=== PATIENT | female | born 1960 | race Caucasian/White ===

== ENCOUNTER 2019-04-23 07:06 | Inpatient (IN) | payer MEDICAID ==
[~2019-04-23 07:06] MED LIST: Bupivacaine 0.5% 50 ML MDV ONE; Lidocaine 1% with EPINEPHrine 1:100,000 50 ML MDV ONE; Meropenem 500 MG SDV ONE
[2019-04-23] MEDS ORDERED: Metoprolol Succinate 50 MG Tab.ER PO ONE (07:17)
[2019-04-23] MEDS ORDERED: Succinylcholine 200 MG/10 ML MDV ONE (07:23)
[2019-04-23] MEDS ORDERED: fentaNYL 250 MCG/5 ML SDV ONE ×2 (07:23→09:26)
[2019-04-23] MEDS ORDERED: Glycopyrrolate 0.2 MG/ML 5 ML MDV ONE (07:23)
[2019-04-23] MEDS ORDERED: Propofol 200 MG/20 ML SDV ONE (07:23)
[2019-04-23] MEDS ORDERED: Dexamethasone 4 MG/ML SDV ONE (07:23)
[2019-04-23] MEDS ORDERED: Neostigmine Methylsulfate 1 MG/ML 5 ML Syringe ONE (07:23)
[2019-04-23] MEDS ORDERED: Rocuronium 50 MG/5 ML Vial ONE (07:23)
[2019-04-23] MEDS ORDERED: Ondansetron 4 MG/2 ML SDV ONE (07:23)
[2019-04-23] MEDS ORDERED: Acetaminophen 500 MG Tab PO ONE (07:30)
[2019-04-23] MEDS ORDERED: Dextrose 5%-Lactated Ringers 1,000 ML IV SCH (07:45)
[2019-04-23] MEDS ORDERED: Scopolamine 1.5 MG Transdermal Patch TOP SCH (07:45)
[2019-04-23] MEDS ORDERED: cefOXitin 2 GM in Sodium Chloride 0.9% 50 ML IV ONE (08:45)
[2019-04-23] MEDS ORDERED: Ketamine 50 MG in Sodium Chloride 0.9% 49.5 ML IV SCH (09:45)
[2019-04-23] MEDS ORDERED: Ketamine 500 MG/5 ML MDV IV SCH (09:45)
[2019-04-23] MEDS ORDERED: Lidocaine 2% 100 MG/5 ML Syringe IVPUSH SCH (09:45)
[2019-04-23] MEDS ORDERED: fentaNYL 100 MCG/2 ML SDV IVPUSH ONE (10:19)
[2019-04-23] MEDS ORDERED: hydrOXYzine HCl 100 MG/2 ML SDV IM ONE (10:19)
[2019-04-23] MEDS: Lidocaine 0.4%/D5W 2 GM/500 ML BAG IV SCH (11:31)
[2019-04-23] MEDS ORDERED: Acetaminophen Soln 650 MG/20.3 ML UD Cup PO SCH (11:51)
[2019-04-23] MEDS ORDERED: Labetalol 20 MG/4 ML Syringe IVPUSH PRN (11:51)
[2019-04-23] MEDS ORDERED: diphenhydrAMINE 50 MG/ML SDV IVPUSH PRN (11:51)
[2019-04-23] MEDS ORDERED: HYDROmorphone 0.5 MG/0.5 ML Syringe IVPUSH PRN (11:51)
[2019-04-23] MEDS ORDERED: Metoclopramide 10 MG/2 ML SDV IVPUSH PRN (11:51)
[2019-04-23] MEDS ORDERED: hydrOXYzine HCl 100 MG/2 ML SDV IM PRN (11:51)
[2019-04-23] MEDS ORDERED: fentaNYL 100 MCG/2 ML SDV ONE (13:02)
[2019-04-23] MEDS: Levothyroxine 100 MCG Tab PO SCH (13:27)
[2019-04-23] MEDS: Docusate Sodium 100 MG Cap PO SCH ×2 (13:27→20:44)
[2019-04-23] MEDS: amLODIPine 5 MG Tab PO SCH (13:28)
[2019-04-23] MEDS: HYDROmorphone 1 MG/ML Syringe IV PRN ×4 (13:35→22:13)
[2019-04-23] MEDS ORDERED: Pantoprazole 40 MG Vial IVPUSH SCH (14:00)
[2019-04-23] MEDS: Dextrose 5%-Lactated Ringers 1,000 ML IV SCH ×3 (15:18→22:08)
[2019-04-23] MEDS: Acetaminophen 325 MG Tab PO SCH ×2 (15:45→20:43)
[2019-04-23] MEDS: Heparin Sodium 5,000 Units/ML Vial SUBCUT SCH (15:46)
[2019-04-23] MEDS: cefOXitin 2 GM in Sodium Chloride 0.9% 50 ML IV SCH ×2 (15:50→22:14)
[2019-04-23] MEDS ORDERED: MVI, Adult with Vitamin K 10 ML, Thiamine 200 MG, Chromium/Copper/Mang/Selen/Zn 1 ML in... IV SCH ×4 (16:00)
[2019-04-24] MEDS: HYDROmorphone 1 MG/ML Syringe IV PRN ×2 (00:22→02:23)
[2019-04-24] MEDS: Acetaminophen 325 MG Tab PO SCH ×4 (02:04→19:28)
[2019-04-24] MEDS: Ondansetron 4 MG/2 ML SDV IVPUSH PRN ×2 (02:27→19:41)
[2019-04-24] MEDS: Heparin Sodium 5,000 Units/ML Vial SUBCUT SCH ×2 (04:14→15:44)
[2019-04-24] MEDS: cefOXitin 2 GM in Sodium Chloride 0.9% 50 ML IV SCH (04:14)
[2019-04-24] MEDS: Dextrose 5%-Lactated Ringers 1,000 ML IV SCH (04:22)
[2019-04-24] MEDS ORDERED: Iopamidol 612 MG/ML 50 ML SDV PO STA (04:24)
--- NOTE | 2019-04-24 05:55 | CRLCR ---
HISTORY: Revision of Alexi-en-Y gastric bypass. TECHNIQUE: Patient was given oral contrast to drink. Two spot films obtained. COMPARISON: No prior. FINDINGS: Contrast is present within the proximal jejunum. There may be a small gastric pouch. There is no contrast extravasation to suggest leak. No obstruction. IMPRESSION: No obstruction or leak seen on these 2 views. Dictated by Wally Doll MD @ Apr 27 2019 1:45PM Signed by Dr. Wally Doll @ Apr 27 2019 1:45PM
[2019-04-24] MEDS ORDERED: Dextrose 5%-Lactated Ringers 1,000 ML IV SCH (07:30)
[2019-04-24] MEDS: Levothyroxine 100 MCG Tab PO SCH (07:45)
[2019-04-24] MEDS: HYDROmorphone 2 MG Tab PO PRN ×2 (07:47→12:11)
[2019-04-24] MEDS ORDERED: Ondansetron 4 MG/2 ML SDV ONE (08:22)
[2019-04-24] MEDS ORDERED: Neostigmine Methylsulfate 1 MG/ML 5 ML Syringe ONE (08:22)
[2019-04-24] MEDS ORDERED: Glycopyrrolate 0.2 MG/ML 5 ML MDV ONE (08:22)
[2019-04-24] MEDS ORDERED: Rocuronium 50 MG/5 ML Vial ONE (08:22)
[2019-04-24] MEDS ORDERED: Propofol 200 MG/20 ML SDV ONE (08:22)
[2019-04-24] MEDS ORDERED: Dexamethasone 4 MG/ML SDV ONE (08:22)
[2019-04-24] MEDS ORDERED: Succinylcholine 200 MG/10 ML MDV ONE (08:22)
[2019-04-24] MEDS ORDERED: fentaNYL 250 MCG/5 ML SDV ONE ×2 (08:23→09:14)
[2019-04-24] MEDS: Docusate Sodium 100 MG Cap PO SCH ×2 (09:58→20:56)
[2019-04-24] MEDS: Metoprolol Succinate 50 MG Tab.ER PO SCH (09:59)
[2019-04-24] MEDS: SCOPOLAMINE PATCH CHECK TOP SCH (09:59)
[2019-04-24] MEDS: amLODIPine 5 MG Tab PO SCH (09:59)
[2019-04-24] MEDS: Lidocaine 0.4%/D5W 2 GM/500 ML BAG IV SCH (10:06)
[2019-04-24] MEDS: HYDROmorphone 1 MG/ML Syringe IVPUSH PRN ×3 (15:17→22:03)
[2019-04-24] MEDS ORDERED: MVI, Adult with Vitamin K 10 ML, Thiamine 200 MG, Chromium/Copper/Mang/Selen/Zn 1 ML in... IV SCH ×4 (16:00)
[2019-04-24] MEDS ORDERED: Pantoprazole 40 MG Delayed-Release Granules 1 Packet PO SCH (16:30)
--- NOTE | 2019-04-24 17:48 | PN ---
DATE OF SERVICE: 04/24/2019 SUBJECTIVE: The patient is postoperative day #1. She has been up ambulating. Vital signs stable. Pain has been controlled. She had some nausea earlier in the shift, and she was given Zofran with Reglan, and this has resolved. REVIEW OF SYSTEMS: Remainder of review of systems negative for any pertinent positives and negatives. OBJECTIVE: GENERAL: The patient is a pleasant 59-year-old female. VITAL SIGNS: TPR is 96.4, 76, 16, blood pressure 128/68. HEENT: Negative. NECK: Supple. HEART: Regular rate and rhythm. LUNGS: Clear. ABDOMEN: Dressings dry and intact. Abdominal binder is on. EXTREMITIES: Without peripheral edema. ASSESSMENT: Exploratory laparotomy with: 1. Reduction of volvulus and closure of internal hernia. 2. Small bowel resection. 3. 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 Date of surgery 04/23/2019. PLAN: 1. Step-2 gastric bypass diet without cereal. 2. Dilaudid 2 mg 1 to 2 every 4 hours p.r.n. pain. 3. Decrease IV 200 mL per hour. 4. Dressing off, may shower. 5. Good pulmonary toilet. We will evaluate p.r.n. or in a.m. FOLLOWUP APPOINTMENT: Does not wish to come back to [facility]. Amrita Delgado PA-C /[id number]
[2019-04-25] MEDS: HYDROmorphone 2 MG Tab PO PRN ×3 (00:50→11:04)
[2019-04-25] MEDS: Acetaminophen 325 MG Tab PO SCH ×2 (01:42→08:29)
[2019-04-25] MEDS: Heparin Sodium 5,000 Units/ML Vial SUBCUT SCH (03:49)
[2019-04-25] MEDS: Ondansetron 4 MG/2 ML SDV IVPUSH PRN (03:49)
[2019-04-25] MEDS: Levothyroxine 100 MCG Tab PO SCH (08:28)
[2019-04-25] MEDS: Docusate Sodium 100 MG Cap PO SCH (08:29)
[2019-04-25] MEDS: amLODIPine 5 MG Tab PO SCH (08:30)
[2019-04-25] MEDS: Metoprolol Succinate 50 MG Tab.ER PO SCH (08:30)
[2019-04-25] MEDS: SCOPOLAMINE PATCH CHECK TOP SCH (08:31)
[2019-04-25] MEDS ORDERED: Cyanocobalamin (Vitamin B12) 1,000 MCG/ML SDV IM ONE (09:00)
[2019-04-25] MEDS ORDERED: Aluminum Hydroxide/Magnesium Hydroxide/Simethicone Susp 30 ML Cup PO ONE (09:35)
--- NOTE | 2019-04-27 08:36 | DISCH ---
FINAL DIAGNOSES: 1. Partial small bowel obstruction, secondary to: a. Focal volvulus. b. 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 2. Extensive intraabdominal adhesions. OPERATIVE PROCEDURES: Exploratory laparotomy with: 1. Reduction of small bowel volvulus. 2. Closure of internal hernia. 3. Small bowel resection. 4. Placement of Interceed mesh to limit recurrent adhesion formation. SUMMARY: This is a 59-year-old, who is severaly years status post Alexi-en-Y gastric bypass, presenting with ongoing crampy abdominal pain in the postprandial period. An upper GI endoscopy was unremarkable and was felt to have a partial small bowel obstruction. This was confirmed at the time of surgery with the patient having a volvulus, along with stricture at the junction of the Alexi limb going into the jejunojejunostomy. The volvulus was reduced and internal hernia closed, and the small bowel was then resected at the junction of the Alexi limb going into the jejunojejunostomy. This was repositioned somewhat more distally, giving the patient a little bit more in the way of weight loss in the long run. Postoperatively, she has done well. She will be sent home with Dilaudid 2-4 mg p.o. q.4 hours p.r.n. pain #50, Tylenol 650 p.o. q.4 hours p.r.n. pain, and 2 doses of milk of magnesia. Otherwise, we will continue usual home medications. DIET: Step 3 diet x2 weeks postop and then advance to a regular step 4 gastric bypass diet and should be following up with Amrita Delgado at [facility] in [place] next Saturday on 04/28/2019.
--- NOTE | 2019-04-29 13:37 | OR ---
DATE OF PROCEDURE: 04/23/2019 SURGEON: Juan Zuniga MD PREOPERATIVE DIAGNOSIS: Partial small bowel obstruction. POSTOPERATIVE DIAGNOSES: 1. Partial small bowel obstruction secondary to: a. Focal volvulus. b. Stricture at the junction of Alexi limb at jejunojejunostomy. 2. Extensive intraabdominal adhesions. OPERATIVE PROCEDURES: Exploratory laparotomy with: 1. Reduction of small bowel volvulus and closure of internal hernia (11683). 2. Small bowel resection (90559). 3. Placement of Interceed mesh to limit recurrent adhesion formation between pelvic and abdominal wall and underlying viscera (95846). ANESTHESIA: General. INDICATION FOR PROCEDURE: This is a 59-year-old presenting with a fairly classic presentation of postprandial crampy abdominal pain and bloating following Alexi-en-Y gastric bypass in regard to her partial small bowel obstruction. Plan is to proceed with a limited laparotomy, reduction of any volvulus that might be identified, and lysis of adhesions along with small bowel resection as indicated. Potential risks including bleeding, infection, injury to underlying viscera, possible recurrence of the problem over time, leakage from any GI tract closures, as well as remote possibility of cardiopulmonary, septic, or hemorrhagic complications leading to were discussed, and the patient wishes to proceed. DETAILS OF PROCEDURE: The patient was taken to the operating room and placed in a supine position. After general endotracheal anesthesia was induced, a Mata catheter was inserted and the abdomen prepped and draped. A midline incision from the umbilicus roughly a handsbreadth upward towards the xiphoid was made. This was carried down through the skin, subcutaneous tissue, and full thickness of the abdominal wall. Upon entering the peritoneal cavity, a fair bit of adhesions were noted between the omentum and the anterior abdominal wall, as well as some loops of the small bowel. These were taken down. At this point, the patient was noted to have a focal volvulus of small bowel underneath the Alexi limb. This was reduced, and upon reduction of this area, the patient was noted to have a fixed stricture where the Alexi limb entered the jejunojejunostomy. Given this, this area was divided and small segment of small bowel resected, and subsequent anastomosis was then constructed a few centimeters distal to the original jejunojejunostomy with an internal firing of the Endo-DAVID 60 mm stapler. Common opening was then closed transversely with the same stapler and the angles of anastomosis were reinforced with some 3-0 Vicryl stitch. The mesenteric defect at both this site and the volvulus site was then closed with 2-0 silk stitch. At this point, no further problems were noted. The abdomen was irrigated with antibiotic-containing saline solution. Two Interceed meshes were then placed behind the pelvic wall anteriorly and laterally and then up against the anterior abdominal wall to limit recurrent adhesion formation. The midline fascia was approximated with #2 Vicryl stitch, and the skin and subcutaneous tissue were approximated with Vicryl stitch followed by dhara. The patient had received bilateral transversus abdominis plane blocks, and the incision was also anesthetized with 0.5% Marcaine and the dressing applied. The patient was taken to the recovery room in satisfactory condition. Physician occupational therapist's assistant, Amrita Delgado, played an essential role in assisting in this case, helping to position the patient, retracting structures as needed, as well as suturing and cutting sutures when indicated. Her presence improved patient safety and decreased the operative time. Juan Zuniga MD /[id number]
== END 2019-04-25 12:06 | disposition home or self-care (01) | DRG 331 ==
LOC: JP.SDS 07:06 → JP.ICU 10:05 → UNDOFXSDCACCOM 10:05 → JP.ICU 10:05 → UNDOFXSDCRRACCOM 10:05 → JP.SDS 10:06
PROVIDERS: ADMIT Surgery; ATTEND Surgery
PROC: 0DS80ZZ Reposition Small Intestine, Open Approach (ICD-10-PCS; principal; 2019-04-23)
PROC: 0DB80ZZ Excision of Small Intestine, Open Approach (ICD-10-PCS; 2019-04-23)
PROC: 3E0M05Z Introduction of Adhesion Barrier into Peritoneal Cavity, Open Approach (ICD-10-PCS; 2019-04-23)
PROC: 0DNW0ZZ Release Peritoneum, Open Approach (ICD-10-PCS; 2019-04-23)
DX: K56.2 Volvulus (principal); K56.51 Intestinal adhesions [bands], with partial obstruction; G47.31 Primary central sleep apnea; I10 Essential (primary) hypertension; R16.0 Hepatomegaly, not elsewhere classified; E66.01 Morbid (severe) obesity due to excess calories; K46.9 Unspecified abdominal hernia without obstruction or gangrene; G47.33 Obstructive sleep apnea (adult) (pediatric); Z88.2 Allergy status to sulfonamides; Z88.1 Allergy status to other antibiotic agents; Z87.891 Personal history of nicotine dependence; Z98.84 Bariatric surgery status; Z90.710 Acquired absence of both cervix and uterus; Z90.89 Acquired absence of other organs; Z98.51 Tubal ligation status; Z68.28 Body mass index [BMI] 28.0-28.9, adult
CPT/HCPCS: 74240; 88307; A9270-GY; C9113; J0171; J0330; J0694; J1100; J1170; J1644; J2001; J2185; J2405; J2704; J2710; J2765; J2795; J3010; J3410; J3411; J3420; J3490; J7042; J7050; Q9967

== ENCOUNTER 2019-05-05 12:30 | Inpatient (IN) | payer MEDICAID ==
[2019-05-05] MEDS ORDERED: HYDROmorphone 0.5 MG/0.5 ML Syringe IVPUSH PRN (12:50)
[2019-05-05] MEDS ORDERED: Ondansetron 4 MG/2 ML SDV IVPUSH PRN (12:50)
[2019-05-05] MEDS ORDERED: Lactated Ringers 500 ML IV ONE (13:00)
[2019-05-05] MEDS: HYDROmorphone 1 MG/ML Syringe IV PRN ×3 (13:37→23:14)
[2019-05-05] MEDS: Dextrose 5%-Lactated Ringers 1,000 ML IV SCH ×2 (13:40→21:37)
[2019-05-05] MEDS: Pantoprazole 40 MG Vial IV SCH (14:21)
[2019-05-05] MEDS ORDERED: Bupivacaine 0.5%/EPINEPHrine 1:200,000 50 ML MDV ONE (14:44)
[2019-05-05] MEDS ORDERED: metroNIDAZOLE/Normal Saline 500 MG in Premix Bag 1 BAG IV ONE (15:00)
[2019-05-05] MEDS ORDERED: ceFAZolin 2 GM in Premix Bag 1 BAG IV ONE (15:00)
[2019-05-05] MEDS ORDERED: Ropivacaine 40 ML, dexAMETHasone 8 MG, EPINEPHrine 0.4 MG, Sodium Chloride 0.9% 37.6 ML NERVRT SCH ×4 (15:30)
[2019-05-05] MEDS ORDERED: Rocuronium 50 MG/5 ML Vial ONE (16:06)
[2019-05-05] MEDS ORDERED: Dexamethasone 4 MG/ML SDV ONE (16:06)
[2019-05-05] MEDS ORDERED: Ondansetron 4 MG/2 ML SDV ONE (16:06)
[2019-05-05] MEDS ORDERED: Propofol 200 MG/20 ML SDV ONE (16:06)
[2019-05-05] MEDS ORDERED: fentaNYL 250 MCG/5 ML SDV ONE ×2 (16:06→16:38)
[2019-05-05] MEDS ORDERED: Neostigmine Methylsulfate 1 MG/ML 5 ML Syringe ONE (16:06)
[2019-05-05] MEDS ORDERED: Glycopyrrolate 0.2 MG/ML 5 ML MDV ONE (16:06)
[2019-05-05] MEDS ORDERED: Succinylcholine 200 MG/10 ML MDV ONE (16:06)
[2019-05-05] MEDS ORDERED: Meropenem 500 MG SDV ONE (16:43)
[2019-05-05] MEDS ORDERED: Sodium Chloride 0.9% 10 ML ONE (16:43)
[2019-05-05] MEDS ORDERED: Ketorolac 60 MG/2 ML SDV ONE ×2 (16:52→17:05)
[2019-05-05] MEDS ORDERED: Bisacodyl 5 MG Tab PO PRN (17:18)
[2019-05-05] MEDS ORDERED: diphenhydrAMINE 50 MG/ML SDV IVPUSH PRN (17:18)
[2019-05-05] MEDS ORDERED: Benzocaine/Cetylpyridinium/Menthol Lozenge MUCMEM PRN (17:18)
[2019-05-05] MEDS ORDERED: Acetaminophen 325 MG Tab PO PRN (17:18)
[2019-05-05] MEDS ORDERED: Docusate Sodium 100 MG Cap PO PRN (17:18)
[2019-05-05] MEDS ORDERED: hydrOXYzine HCl 100 MG/2 ML SDV IM PRN (17:18)
[2019-05-05] MEDS ORDERED: Piperacillin/Tazobactam 3.375 GM in Sodium Chloride 0.9% 50 ML IV SCH (18:00)
[2019-05-05] MEDS: Piperacillin/Tazobactam/Dext 3.375 GM in Premix Bag 1 BAG IV SCH ×2 (18:19→23:20)
--- NOTE | 2019-05-06 01:31 | CONS ---
DATE OF SERVICE: 05/05/2019 REFERRING PHYSICIAN: CONSULTING PHYSICIAN: Yousuf Phillips MD REASON FOR CONSULTATION: Abdominal pain. HISTORY OF PRESENT ILLNESS: A 59-year-old female who is a patient of Bariatric Surgery, who was diagnosed with partial small bowel obstruction due to a volvulus and stricture of the jejunal anastomosis requiring repair of internal hernia and revision of the small bowel. This was performed on 04/23/2019. The patient went home and subsequently presents with abdominal pain, which is mostly left upper quadrant. Associated with some nausea. The pain described as 4-5/10 and is constant. The patient also went to CT scan on 05/05/2019, which showed an abscess in proximity to the transverse colon. PAST MEDICAL HISTORY: Hypertension, hypothyroidism, sleep apnea, osteoarthritis, osteopenia, stress incontinence, gastroesophageal reflux disease, goiter, neck pain, ADHD, depression, nephrolithiasis, and history of Alexi-en-Y. PAST SURGICAL HISTORY: Alexi-en-Y as described above, revision of Alexi-en-Y as described above, tubal ligation, tonsils, paraesophageal hernia repair, hysterectomy, knee scoping, and cholecystectomy. SOCIAL HISTORY: The patient does not smoke. FAMILY HISTORY: Noncontributory. REVIEW OF SYSTEMS: GENERAL: The patient is appropriate for condition. HEENT: No symptoms. CARDIOVASCULAR: No chest pain. RESPIRATORY: No recent symptoms of pneumonia. GENITOURINARY: No dysuria. NEUROLOGIC: No changes. PSYCHIATRIC: No changes. The remainder review of systems is reviewed and is negative. PHYSICAL EXAMINATION: VITAL SIGNS: Temperature 98.5, blood pressure 118/66, pulse 51, and 92% on room air. GENERAL: The patient is resting comfortably. HEENT: Pupils are equal. NECK: Supple. LUNGS: Clear. CARDIOVASCULAR: Regular rhythm and rate. RESPIRATORY: Lungs are clear to auscultation bilaterally. ABDOMEN: Pain with palpation of the left upper quadrant. EXTREMITIES: Full range of motion. NEUROLOGIC: Alert and oriented x3. PSYCHIATRIC: No gross depression. IMAGING: CT scan as above. ASSESSMENT: Abdominal abscess. PLAN: The patient will be taken to the operating room for diagnostic laparoscopy and probable drainage of abscess. We also discussed the possibility of open surgery and the possibility of small bowel resection. We also discussed risks, benefits, alternatives, and limitations including, but not limited to, infection, bleeding, open surgery, recurrent abscess formation, cardiovascular problems, sepsis, and other risks not listed here. The patient understands these risks and wishes to proceed. Yousuf Phillips MD /[id number]
[2019-05-06] MEDS: HYDROmorphone 1 MG/ML Syringe IV PRN ×3 (01:38→05:41)
[2019-05-06] MEDS: Piperacillin/Tazobactam/Dext 3.375 GM in Premix Bag 1 BAG IV SCH ×4 (05:15→23:42)
[2019-05-06] MEDS: Dextrose 5%-Lactated Ringers 1,000 ML IV SCH ×2 (05:18→14:26)
[2019-05-06] MEDS ORDERED: Melatonin 3 MG Tab PO PRN (07:29)
[2019-05-06] MEDS ORDERED: Docusate Sodium 100 MG Cap PO PRN (07:29)
[2019-05-06] MEDS: HYDROmorphone 2 MG Tab PO PRN ×4 (08:15→21:10)
[2019-05-06] MEDS: Ondansetron 4 MG Tab.DIS PO PRN (08:17)
[2019-05-06] MEDS ORDERED: Metoprolol Succinate 50 MG Tab.ER PO SCH (09:00)
[2019-05-06] MEDS: Levothyroxine 100 MCG Tab PO SCH (09:07)
[2019-05-06] MEDS: Enoxaparin 40 MG/0.4 ML Syringe SUBCUT SCH (09:07)
[2019-05-06] MEDS: Acetaminophen 325 MG Tab PO SCH ×3 (09:08→21:10)
[2019-05-06] MEDS: amLODIPine 5 MG Tab PO SCH (09:08)
--- NOTE | 2019-05-06 09:15 | PN ---
DATE OF SERVICE: 05/06/2019 SUBJECTIVE: Dania is postoperative day #1. She reports she is feeling much better than yesterday. She still has the pain, but much less. Been afebrile, up ambulating. Oral intake 360, urine output 2150. APRIL drain put out 100 mL of a dark thick red drainage. REVIEW OF SYSTEMS: Remainder of review of systems negative for any pertinent positives and negatives. OBJECTIVE: GENERAL: Dania Horowitz is a pleasant 59-year-old female, alert, oriented, stating she feels much better. VITAL SIGNS: Today, TPR is 97.6, 40, 16. Blood pressure 137/58. HEENT: Negative. NECK: Supple. HEART: Regular rate and rhythm. LUNGS: Clear. ABDOMEN: Dressing is dry and intact. APRIL drain as above. EXTREMITIES: Without peripheral edema. ASSESSMENT: 1. Laparoscopic drainage of abscess, 05/05/2019. Yousuf Phillips MD. 2. Status post exploratory laparotomy with reduction of small bowel volvulus, closure of internal hernia, small bowel resection and placement of Interceed mesh to limit recurrent adhesive formation. Date of surgery, 04/23/2019. PLAN: 1. Decrease IV to 100 mL/hour. 2. Dilaudid 2-4 mg p.o. p.r.n. pain. 3. Senna Plus 2 tabs b.i.d. 4. Levothyroxine 200 mcg p.o. daily. 5. Metoprolol 100 mg p.o. daily. She normally takes once a day. We will hold. Pulse is 40. 6. Melatonin 9 mg p.o. at bedtime. 7. Zofran ODT 4 mg q.4 hours p.r.n. nausea. 8. Tylenol for 650 mg p.o. q.6 hours. Change to scheduled. 9. We will evaluate p.r.n. or in a.m. Amrita Delgado PA-C /[id number]
--- NOTE | 2019-05-06 10:27 | OR ---
DATE OF PROCEDURE: 05/05/2019 SURGEON: Yousuf Phillips MD PROCEDURE: 1. Diagnostic laparoscopy. 2. Drainage of peritoneal abscess (17919). FINDINGS: Abscess approximately 5 cm in proximity of the transverse colon. COMPLICATIONS: None. SINTERING PRESS OPERATOR: None. ANESTHESIA: General/local. RISKS: Risks, benefits, alternatives, and limitations including, but not limited to infection, bleeding, and injury to abdominal structures were explained. The patient wished to proceed. DESCRIPTION OF PROCEDURE: The patient was placed in supine position. On the left side, a Veress needle was used to enter the abdomen without abnormality. A drop test was performed without abnormality. The abdomen was subsequently insufflated. This was followed by an Optiview trocar. No evidence of enterotomy or injuries noted during entry. An additional 12 mm port and an additional 5 mm port were entered under direct visualization. The abdomen was inspected, and in the transverse colon in proximity to the Alexi-en-Y limb, an abscess was identified. This was gently opened, and the expected amount of pus was noted. This was suctioned and cultured and thoroughly irrigated with meropenem containing solution. A 10 flat Kenton-Abad drain was then placed directly in the abscess cavity. The abdomen was subsequently desufflated, after further irrigation was performed. The air was removed. The wounds were closed with 3-0 Vicryl and 4-0 Vicryl in interrupted running fashion. The patient tolerated the procedure well. Yousuf Phillips MD /[id number]
--- NOTE | 2019-05-06 10:30 | OR ---
DATE OF PROCEDURE: 05/05/2019 SURGEON: Yousuf Phillips MD PROCEDURE: Transversus abdominis plane block, bilaterally. COMPLICATIONS: None. OIL WELL PERFORATOR OPERATOR: None. RISKS: Risks, benefits, alternatives, and limitations including, but not limited to infection, bleeding, and injury to abdominal structures were explained to the patient, and they wished to proceed. PROCEDURE IN DETAIL: The patient was placed in supine position. Left transversus plane was identified first. This was anesthetized with the solution under ultrasound guidance. Approximately 20 mL was injected on the left side. The right side was then performed in the same manner, same fashion, same technique, and the same sequence using the same equipment. The patient tolerated the procedure well. Yousuf Phillips MD /[id number]
--- NOTE | 2019-05-06 11:54 | PCM.SURGPN ---
- General Info Date of Service: 05/06/19 Date of Surgery/Procedure: 05/05/19 POD#: 1 Post-Op Diagnosis: Intra-abdominal abscess Functional Status: Reports: Pain Controlled, Tolerating Diet, Ambulating, Urinating, Incentive Spirometry - Review of Systems General: Reports: No Symptoms HEENT: Reports: No Symptoms Pulmonary: Reports: No Symptoms Cardiovascular: Reports: No Symptoms Gastrointestinal: Denies: Flatus Genitourinary: Reports: No Symptoms Musculoskeletal: Reports: No Symptoms Skin: Reports: No Symptoms Neurological: Reports: No Symptoms Psychiatric: Reports: No Symptoms - Patient Data Vitals - Most Recent: Last Vital Signs Temp 96.9 F 05/06/19 10:23 Pulse 47 L 05/06/19 10:23 Resp 18 05/06/19 10:23 BP 110/52 L 05/06/19 10:23 Pulse Ox 97 05/06/19 10:23 Weight - Most Recent: 176 lb 11.2 oz I&O - Last 24 Hours: Intake & Output 05/05/19 05/06/19 05/06/19 22:59 06:59 14:59 Intake Total 994 1721 Output Total 1365 1060 320 Balance -371 661 -320 Lab Results Last 24 Hrs: Laboratory Results - last 24 hr 05/06/19 Range/Units 04:00 Sodium 139 L (140-148) mmol/L Potassium 4.3 (3.6-5.2) mmol/L Chloride 105 (100-108) mmol/L Carbon Dioxide 25 (21-32) mmol/L Anion Gap 13.3 (5.0-14.0) mmol/L BUN 5 L D (7-18) mg/dL Creatinine 0.6 (0.6-1.0) mg/dL Est Cr Clr Drug Dosing 100.60 mL/min Estimated GFR (MDRD) > 60 (>60) Glucose 169 H (74-106) mg/dL Calcium 8.9 (8.5-10.1) mg/dL Blu Results Last 24 Hrs: Microbiology 05/05/19 16:55 Gram Stain - Final Abdominal Fluid - Aspirate Wound Culture - Preliminary Med Orders - Current: Current Medications Acetaminophen (Tylenol) 650 mg PO Q6H [facility] Last Admin: 05/06/19 09:08 Dose: 650 mg Amlodipine Besylate (Norvasc) 5 mg PO DAILY [facility] Last Admin: 05/06/19 09:08 Dose: 5 mg Benzocaine/Menthol (Cepacol Sore Throat) 1 lozenge MUCMEM Q1H PRN PRN Reason: Sore Throat Bisacodyl (Dulcolax) 5 mg PO DAILY PRN PRN Reason: Constipation Diphenhydramine HCl (Benadryl) 50 mg IVPUSH Q4H PRN PRN Reason: Itching Docusate Sodium (Colace) 100 mg PO BID PRN PRN Reason: Constipation Enoxaparin Sodium (Lovenox) 40 mg SUBCUT DAILY [facility] Last Admin: 05/06/19 09:07 Dose: 40 mg Hydromorphone HCl (Dilaudid) 2 - 4 mg PO Q4H PRN PRN Reason: Pain Last Admin: 05/06/19 08:15 Dose: 4 mg Hydroxyzine HCl (Vistaril) 50 mg IM Q4H PRN PRN Reason: Nausea Piperacillin/Tazobactam/ (Dextrose 3.375 gm/ Premix) 50 mls @ 100 mls/hr IV Q6H [facility] Last Admin: 05/06/19 05:15 Dose: 100 mls/hr Dextrose/Lactated Ringer's (Dextrose 5%-Lactated Ringers) 1,000 mls @ 100 mls/ hr IV ASDIRECTED [facility] Levothyroxine Sodium (Synthroid) 200 mcg PO DAILY@0730 [facility] Last Admin: 05/06/19 09:07 Dose: 200 mcg Melatonin (Melatonin) 9 mg PO BEDTIME PRN PRN Reason: Sleep Metoprolol Succinate (Toprol Xl) 100 mg PO DAILY [facility] Ondansetron HCl (Zofran) 4 mg IVPUSH Q4H PRN PRN Reason: Nausea Ondansetron HCl (Zofran Odt) 4 mg PO Q4H PRN PRN Reason: Nausea Last Admin: 05/06/19 08:17 Dose: 4 mg Pantoprazole Sodium (Protonix Iv) 40 mg IV Q24H [facility] Last Admin: 05/05/19 14:21 Dose: 40 mg Senna/Docusate Sodium (Senna Plus) 2 tab PO BID [facility] Last Admin: 05/06/19 09:07 Dose: 2 tab Discontinued Medications Acetaminophen (Tylenol) 650 mg PO Q6H PRN PRN Reason: Pain (mild 1-3) Bupivacaine HCl/Epinephrine Bitart (Marcaine 0.5%/Epinephrine 1:200,000) Confirm Administered Dose 50 ml .ROUTE .STK-MED ONE Stop: 05/05/19 14:45 Last Admin: 05/05/19 17:32 Dose: 20 ml Ropivacaine 40 ml/Dexamethasone 8 mg/Epinephrine HCl 0.4 mg/ Sodium Chloride 37.6 ml 0 ml NERVRT ASDIRECTED [facility] Last Admin: 05/05/19 16:34 Dose: 80 syringe Dexamethasone (Dexamethasone) Confirm Administered Dose 4 mg .ROUTE .STK-MED ONE Stop: 05/05/19 16:07 Docusate Sodium (Colace) 100 mg PO DAILY PRN PRN Reason: Constipation Fentanyl (Sublimaze) Confirm Administered Dose 250 mcg .ROUTE .STK-MED ONE Stop: 05/05/19 16:07 Fentanyl (Sublimaze) Confirm Administered Dose 250 mcg .ROUTE .STK-MED ONE Stop: 05/05/19 16:39 Glycopyrrolate (Robinul) Confirm Administered Dose 1 mg .ROUTE .STK-MED ONE Stop: 05/05/19 16:07 Hydromorphone HCl (Dilaudid) 0.5 mg IVPUSH Q2H PRN PRN Reason: MOD PAIN (4-6) Hydromorphone HCl (Dilaudid) 1 mg IV Q2H PRN PRN Reason: SEVERE PAIN 7-10 Last Admin: 05/06/19 05:41 Dose: 1 mg Dextrose/Lactated Ringer's (Dextrose 5%-Lactated Ringers) 1,000 mls @ 150 mls/ hr IV ASDIRECTED [facility] Last Infusion: 05/06/19 09:08 Dose: 100 mls/hr Lactated Ringer's (Ringers, Lactated) 500 mls @ 500 mls/hr IV ONETIME ONE Stop: 05/05/19 13:59 Last Admin: 05/05/19 13:41 Dose: 500 mls/hr Cefazolin Sodium/Dextrose 2 gm (/ Premix) 50 mls @ 100 mls/hr IV ONETIME ONE Stop: 05/05/19 15:29 Last Admin: 05/05/19 15:56 Dose: 100 mls/hr Metronidazole 500 mg/ Premix 100 mls @ 100 mls/hr IV ONETIME ONE Stop: 05/05/19 15:59 Last Admin: 05/05/19 15:58 Dose: 100 mls/hr Piperacillin Sod/Tazobactam (Sod 3.375 gm/ Sodium Chloride) 50 mls @ 100 mls/ hr IV Q6H [facility] Sodium Chloride (Normal Saline) Confirm Administered Dose 10 mls @ as directed .ROUTE .STK-MED ONE Stop: 05/05/19 16:44 Ketorolac Tromethamine (Toradol) Confirm Administered Dose 60 mg .ROUTE .STK- MED ONE Stop: 05/05/19 16:53 Ketorolac Tromethamine (Toradol) Confirm Administered Dose 60 mg .ROUTE .STK- MED ONE Stop: 05/05/19 17:06 Meropenem (Merrem) Confirm Administered Dose 500 mg .ROUTE .STK-MED ONE Stop: 05/05/19 16:44 Neostigmine Methylsulfate (Neostigmine) Confirm Administered Dose 5 mg .ROUTE .STK-MED ONE Stop: 05/05/19 16:07 Ondansetron HCl (Zofran) Confirm Administered Dose 4 mg .ROUTE .STK-MED ONE Stop: 05/05/19 16:07 Propofol (Diprivan 20 Ml) Confirm Administered Dose 200 mg .ROUTE .STK-MED ONE Stop: 05/05/19 16:07 Rocuronium [place] (Zemuron) Confirm Administered Dose 50 mg .ROUTE .STK-MED ONE Stop: 05/05/19 16:07 Succinylcholine Chloride (Quelicin) Confirm Administered Dose 200 mg .ROUTE .STK -MED ONE Stop: 05/05/19 16:07 - Exam Wound/Incisions: Healing Well General: Alert, Oriented, Cooperative, No Acute Distress Lungs: Clear to Auscultation, Normal Respiratory Effort Cardiovascular: Regular Rate, Regular Rhythm GI/Abdominal Exam: Normal Bowel Sounds, Soft, Non-Tender Extremities: Normal Inspection, Normal Range of Motion Skin: Warm, Dry, Intact Psy/Mental Status: Alert, Normal Affect, Normal Mood - Problem List & Annotations (1) Abdominal abscess SNOMED Code(s): 96970724 Code(s): [id number] - Status: Acute Current Visit: Yes - Problem List Review Problem List Initiated/Reviewed/Updated: Yes - My Orders Last 24 Hours: Active Orders 24 hr Category Date Time Status Admission Status [Patient Status] [ADT] Routine ADT 05/05/19 12:20 Active Ambulate [RC] ASDIRECTED Care 05/05/19 17:18 Active Dorsiflex/Plantar flex x 10 [RC] QSHIFT Care 05/05/19 17:18 Active Head of Bed Elevation [RC] CONTINUOUS Care 05/05/19 17:18 Active Intake and Output [RC] ASDIRECTED Care 05/05/19 12:54 Active Notify Provider Consults [RC] ASDIRECTED Care 05/05/19 12:57 Active Oxygen Therapy [RC] PRN Care 05/05/19 17:18 Active RT Incentive Spirometry [RC] Q1HWA Care 05/05/19 17:18 Active Turn, Cough, Deep Breathe [RC] Q1HWA Care 05/05/19 17:18 Active Up ad Olena [RC] ASDIRECTED Care 05/05/19 12:20 Active Up to Chair [RC] TIDMEALS Care 05/05/19 17:18 Active Vital Signs [RC] Q4H Care 05/05/19 12:20 Active Consult to Physician [CONS] Routine Cons 05/05/19 12:20 Ordered Respiratory Care Assess and Treatment [CONS] Routine Cons 05/05/19 17:18 Active CBC W/O DIFF,HEMOGRAM [HEME] AM Lab 05/09/19 05:11 Ordered CULTURE ANAEROBIC [RM] Routine Lab 05/05/19 16:55 Results CULTURE WOUND + SMEAR [RM] Routine Lab 05/05/19 16:55 Results Acetaminophen [Tylenol] Med 05/06/19 10:00 Active 650 mg PO Q6H Benzocaine/Cetylpyrd/Menthol [Cepacol Sore Throat] Med 05/05/19 17:18 Active 1 lozenge MUCMEM Q1H PRN Bisacodyl [Dulcolax] Med 05/05/19 17:18 Active 5 mg PO DAILY PRN Dextrose 5%-Lactated Ringers 1,000 ml Med 05/06/19 07:30 Active IV ASDIRECTED Docusate Sodium [Colace] Med 05/05/19 17:18 Active 100 mg PO BID PRN Docusate Sodium/Sennosides [Senna Plus] Med 05/06/19 09:00 Active 2 tab PO BID Enoxaparin [Lovenox] Med 05/06/19 09:00 Active 40 mg SUBCUT DAILY HYDROmorphone [Dilaudid] Med 05/06/19 07:29 Active 2 - 4 mg PO Q4H PRN Levothyroxine [Synthroid] Med 05/06/19 09:00 Active 200 mcg PO DAILY@0730 Melatonin Med 05/06/19 07:29 Active 9 mg PO BEDTIME PRN Metoprolol Succinate [Toprol XL] Med 05/06/19 09:00 Hold 100 mg PO DAILY Ondansetron [Zofran ODT] Med 05/06/19 07:29 Active 4 mg PO Q4H PRN Ondansetron [Zofran] Med 05/05/19 12:50 Active 4 mg IVPUSH Q4H PRN Pantoprazole [ProTONIX IV] Med 05/05/19 14:00 Active 40 mg IV Q24H Piperacillin/Tazobactam/Dext [Zosyn in Dextrose Iso- Med 05/05/19 18:00 Active Osmotic 3.375 GM] 3.375 gm Premix Bag 1 bag IV Q6H amLODIPine [Norvasc] Med 05/06/19 09:00 Active 5 mg PO DAILY diphenhydrAMINE [Benadryl] Med 05/05/19 17:18 Active 50 mg IVPUSH Q4H PRN hydrOXYzine HCl [Vistaril] Med 05/05/19 17:18 Active 50 mg IM Q4H PRN Abdominal Binder [OM.PC] Per Unit Routine Ot 05/05/19 17:19 Ordered Oral Care [OM.PC] BID Oth 05/05/19 17:30 Ordered Oral Care [OM.PC] BID Oth 05/06/19 17:30 Ordered Oral Nutrition Supplement [COMM] Routine Oth 05/06/19 07:52 Active SCD [Sequential Compression Device] [OM.PC] Routine Oth 05/05/19 12:54 Ordered Code Status [Resuscitation Status] Routine Resus Stat 05/05/19 12:52 Ordered Medication Orders Acetaminophen (Tylenol) 650 mg PO Q6H [facility] Last Admin: 05/06/19 09:08 Dose: 650 mg Amlodipine Besylate (Norvasc) 5 mg PO DAILY [facility] Last Admin: 09/25/19 09:08 Dose: 5 mg Benzocaine/Menthol (Cepacol Sore Throat) 1 lozenge MUCMEM Q1H PRN PRN Reason: Sore Throat Bisacodyl (Dulcolax) 5 mg PO DAILY PRN PRN Reason: Constipation Diphenhydramine HCl (Benadryl) 50 mg IVPUSH Q4H PRN PRN Reason: Itching Docusate Sodium (Colace) 100 mg PO BID PRN PRN Reason: Constipation Enoxaparin Sodium (Lovenox) 40 mg SUBCUT DAILY [facility] Last Admin: 05/06/19 09:07 Dose: 40 mg Hydromorphone HCl (Dilaudid) 2 - 4 mg PO Q4H PRN PRN Reason: Pain Last Admin: 05/06/19 08:15 Dose: 4 mg Hydroxyzine HCl (Vistaril) 50 mg IM Q4H PRN PRN Reason: Nausea Piperacillin/Tazobactam/ (Dextrose 3.375 gm/ Premix) 50 mls @ 100 mls/hr IV Q6H [facility] Last Admin: 05/06/19 05:15 Dose: 100 mls/hr Admin: 05/05/19 23:20 Dose: 100 mls/hr Admin: 05/05/19 18:19 Dose: 100 mls/hr Dextrose/Lactated Ringer's (Dextrose 5%-Lactated Ringers) 1,000 mls @ 100 mls/ hr IV ASDIRECTED [facility] Levothyroxine Sodium (Synthroid) 200 mcg PO DAILY@0730 [facility] Last Admin: 05/06/19 09:07 Dose: 200 mcg Melatonin (Melatonin) 9 mg PO BEDTIME PRN PRN Reason: Sleep Metoprolol Succinate (Toprol Xl) 100 mg PO DAILY [facility] Ondansetron HCl (Zofran) 4 mg IVPUSH Q4H PRN PRN Reason: Nausea Ondansetron HCl (Zofran Odt) 4 mg PO Q4H PRN PRN Reason: Nausea Last Admin: 05/06/19 08:17 Dose: 4 mg Pantoprazole Sodium (Protonix Iv) 40 mg IV Q24H [facility] Last Admin: 05/05/19 14:21 Dose: 40 mg Senna/Docusate Sodium (Senna Plus) 2 tab PO BID [facility] Last Admin: 05/06/19 09:07 Dose: 2 tab - Assessment Assessment (Free Text/Narrative):: Abdominal abscess subculture pending. - Plan Plan (Free Text/Narrative):: Follow.
[2019-05-06] MEDS: Pantoprazole 40 MG Vial IV SCH (14:47)
[2019-05-07] MEDS: Dextrose 5%-Lactated Ringers 1,000 ML IV SCH ×2 (01:01→21:26)
[2019-05-07] MEDS: HYDROmorphone 2 MG Tab PO PRN ×6 (01:02→21:23)
[2019-05-07] MEDS: Acetaminophen 325 MG Tab PO SCH ×4 (05:07→21:24)
[2019-05-07] MEDS: Piperacillin/Tazobactam/Dext 3.375 GM in Premix Bag 1 BAG IV SCH ×3 (05:10→18:10)
[2019-05-07] MEDS: Levothyroxine 100 MCG Tab PO SCH (07:23)
[2019-05-07] MEDS: Enoxaparin 40 MG/0.4 ML Syringe SUBCUT SCH (08:50)
[2019-05-07] MEDS: amLODIPine 5 MG Tab PO SCH (08:51)
--- NOTE | 2019-05-07 11:25 | PN ---
DATE OF SERVICE: 05/07/2019 SUBJECTIVE: Dania is a 59-year-old female. She states that tight pressure pain that she had before she had her surgery came back last night. She is not sure if she got behind on her pain medicine or not. After she took 4 mg of Dilaudid, the pain did go away. She states that she is very fearful about returning. Her APRIL drain put out 15 mL and it is more of a light pink drainage. Oral intake 1320, output 4950. Up ambulating. Vital signs have been stable. REVIEW OF SYSTEMS: Remainder of review of systems negative for any pertinent positives and negatives. OBJECTIVE: GENERAL: Dania Horowitz is a 59-year-old female. VITAL SIGNS: TPR is 97.2, 44, 18, blood pressure 140/78, pulse runs between 44 and 57. Her metoprolol-XL 100 mg has been held. HEENT: Negative. NECK: Supple. HEART: Regular rate and rhythm. LUNGS: Clear. ABDOMEN: Dressing dry and intact. Abdominal binder is on. APRIL drain as stated above. EXTREMITIES: Without peripheral edema. ASSESSMENT: 1. Laparoscopic drainage of abscess, 05/05/2019, Yousuf Phillips MD. 2. Status post exploratory laparotomy with reduction of small bowel volvulus, closure of internal hernia, small bowel resection, and placement of Interceed mesh to limit recurrent adhesion formation. Date of surgery: 04/23/2019. Surgeon: Juan Zuniga MD. PLAN: 1. Advance to bariatric step 3 gastric bypass diet. 2. Decrease IV to TKO. 3. Good pulmonary toilet. 4. We will evaluate p.r.n. or in a.m. Amrita Delgado PA-C /[id number]
[2019-05-07] MEDS: Pantoprazole 40 MG Vial IV SCH (13:09)
--- NOTE | 2019-05-07 16:59 | PCM.SURGPN ---
- General Info Date of Service: 05/07/19 Date of Surgery/Procedure: 05/05/19 POD#: 2 Post-Op Diagnosis: Intra abdominal abscess Functional Status: Reports: Pain Controlled, Tolerating Diet, Ambulating, Urinating - Review of Systems General: Reports: No Symptoms HEENT: Reports: No Symptoms Pulmonary: Reports: No Symptoms Cardiovascular: Reports: No Symptoms Gastrointestinal: Reports: No Symptoms Genitourinary: Reports: No Symptoms Musculoskeletal: Reports: No Symptoms Skin: Reports: No Symptoms Neurological: Reports: No Symptoms Psychiatric: Reports: No Symptoms - Patient Data Vitals - Most Recent: Last Vital Signs Temp 97.1 F 05/07/19 14:05 Pulse 46 L 05/07/19 14:05 Resp 18 05/07/19 14:05 BP 143/63 H 05/07/19 14:05 Pulse Ox 96 05/07/19 14:05 Weight - Most Recent: 176 lb 11.208 oz I&O - Last 24 Hours: Intake & Output 05/07/19 05/07/19 05/07/19 06:59 14:59 22:59 Intake Total 1687 590 536 Output Total 1860 2200 1130 Balance -173 -6936 -594 Blu Results Last 24 Hrs: Microbiology 05/05/19 16:55 Gram Stain - Final Abdominal Fluid - Aspirate Wound Culture - Preliminary Anaerobic Culture - Preliminary NO GROWTH AFTER 1 DAY Med Orders - Current: Current Medications Acetaminophen (Tylenol) 650 mg PO Q6H [facility] Last Admin: 05/07/19 16:53 Dose: 650 mg Amlodipine Besylate (Norvasc) 5 mg PO DAILY [facility] Last Admin: 05/07/19 08:51 Dose: 5 mg Benzocaine/Menthol (Cepacol Sore Throat) 1 lozenge MUCMEM Q1H PRN PRN Reason: Sore Throat Bisacodyl (Dulcolax) 5 mg PO DAILY PRN PRN Reason: Constipation Last Admin: 05/07/19 13:08 Dose: 5 mg Diphenhydramine HCl (Benadryl) 50 mg IVPUSH Q4H PRN PRN Reason: Itching Docusate Sodium (Colace) 100 mg PO BID PRN PRN Reason: Constipation Enoxaparin Sodium (Lovenox) 40 mg SUBCUT DAILY [facility] Last Admin: 05/07/19 08:50 Dose: 40 mg Hydromorphone HCl (Dilaudid) 2 - 4 mg PO Q4H PRN PRN Reason: Pain Last Admin: 05/07/19 16:53 Dose: 4 mg Hydroxyzine HCl (Vistaril) 50 mg IM Q4H PRN PRN Reason: Nausea Piperacillin/Tazobactam/ (Dextrose 3.375 gm/ Premix) 50 mls @ 100 mls/hr IV Q6H [facility] Last Admin: 05/07/19 12:56 Dose: 100 mls/hr Dextrose/Lactated Ringer's (Dextrose 5%-Lactated Ringers) 1,000 mls @ 0 mls/hr IV ASDIRECTED [facility] Last Admin: 05/07/19 01:01 Dose: 100 mls/hr Levothyroxine Sodium (Synthroid) 200 mcg PO DAILY@0730 [facility] Last Admin: 05/07/19 07:23 Dose: 200 mcg Melatonin (Melatonin) 9 mg PO BEDTIME PRN PRN Reason: Sleep Metoprolol Succinate (Toprol Xl) 100 mg PO DAILY [facility] Ondansetron HCl (Zofran) 4 mg IVPUSH Q4H PRN PRN Reason: Nausea Ondansetron HCl (Zofran Odt) 4 mg PO Q4H PRN PRN Reason: Nausea Last Admin: 05/06/19 08:17 Dose: 4 mg Pantoprazole Sodium (Protonix Iv) 40 mg IV Q24H [facility] Last Admin: 05/07/19 13:09 Dose: 40 mg Senna/Docusate Sodium (Senna Plus) 2 tab PO BID [facility] Last Admin: 05/07/19 08:51 Dose: 2 tab Discontinued Medications Acetaminophen (Tylenol) 650 mg PO Q6H PRN PRN Reason: Pain (mild 1-3) Bupivacaine HCl/Epinephrine Bitart (Marcaine 0.5%/Epinephrine 1:200,000) Confirm Administered Dose 50 ml .ROUTE .STK-MED ONE Stop: 05/05/19 14:45 Last Admin: 05/05/19 17:32 Dose: 20 ml Ropivacaine 40 ml/Dexamethasone 8 mg/Epinephrine HCl 0.4 mg/ Sodium Chloride 37.6 ml 0 ml NERVRT ASDIRECTED [facility] Last Admin: 05/05/19 16:34 Dose: 80 syringe Dexamethasone (Dexamethasone) Confirm Administered Dose 4 mg .ROUTE .STK-MED ONE Stop: 05/05/19 16:07 Docusate Sodium (Colace) 100 mg PO DAILY PRN PRN Reason: Constipation Fentanyl (Sublimaze) Confirm Administered Dose 250 mcg .ROUTE .STK-MED ONE Stop: 05/05/19 16:07 Fentanyl (Sublimaze) Confirm Administered Dose 250 mcg .ROUTE .STK-MED ONE Stop: 05/05/19 16:39 Glycopyrrolate (Robinul) Confirm Administered Dose 1 mg .ROUTE .STK-MED ONE Stop: 05/05/19 16:07 Hydromorphone HCl (Dilaudid) 0.5 mg IVPUSH Q2H PRN PRN Reason: MOD PAIN (4-6) Hydromorphone HCl (Dilaudid) 1 mg IV Q2H PRN PRN Reason: SEVERE PAIN 7-10 Last Admin: 05/06/19 05:41 Dose: 1 mg Dextrose/Lactated Ringer's (Dextrose 5%-Lactated Ringers) 1,000 mls @ 150 mls/ hr IV ASDIRECTED [facility] Last Infusion: 05/06/19 09:08 Dose: 100 mls/hr Lactated Ringer's (Ringers, Lactated) 500 mls @ 500 mls/hr IV ONETIME ONE Stop: 05/05/19 13:59 Last Admin: 05/05/19 13:41 Dose: 500 mls/hr Cefazolin Sodium/Dextrose 2 gm (/ Premix) 50 mls @ 100 mls/hr IV ONETIME ONE Stop: 05/05/19 15:29 Last Admin: 05/05/19 15:56 Dose: 100 mls/hr Metronidazole 500 mg/ Premix 100 mls @ 100 mls/hr IV ONETIME ONE Stop: 05/05/19 15:59 Last Admin: 05/05/19 15:58 Dose: 100 mls/hr Piperacillin Sod/Tazobactam (Sod 3.375 gm/ Sodium Chloride) 50 mls @ 100 mls/ hr IV Q6H [facility] Sodium Chloride (Normal Saline) Confirm Administered Dose 10 mls @ as directed .ROUTE .STK-MED ONE Stop: 05/05/19 16:44 Ketorolac Tromethamine (Toradol) Confirm Administered Dose 60 mg .ROUTE .STK- MED ONE Stop: 05/05/19 16:53 Ketorolac Tromethamine (Toradol) Confirm Administered Dose 60 mg .ROUTE .STK- MED ONE Stop: 05/05/19 17:06 Meropenem (Merrem) Confirm Administered Dose 500 mg .ROUTE .STK-MED ONE Stop: 05/05/19 16:44 Neostigmine Methylsulfate (Neostigmine) Confirm Administered Dose 5 mg .ROUTE .STK-MED ONE Stop: 05/05/19 16:07 Ondansetron HCl (Zofran) Confirm Administered Dose 4 mg .ROUTE .STK-MED ONE Stop: 05/05/19 16:07 Propofol (Diprivan 20 Ml) Confirm Administered Dose 200 mg .ROUTE .STK-MED ONE Stop: 05/05/19 16:07 Rocuronium [place] (Zemuron) Confirm Administered Dose 50 mg .ROUTE .STK-MED ONE Stop: 05/05/19 16:07 Succinylcholine Chloride (Quelicin) Confirm Administered Dose 200 mg .ROUTE .STK -MED ONE Stop: 05/05/19 16:07 - Exam Wound/Incisions: Healing Well General: Alert, Oriented, Cooperative Lungs: Clear to Auscultation Cardiovascular: Regular Rate GI/Abdominal Exam: Normal Bowel Sounds Extremities: Normal Inspection Skin: Warm Neurological: No New Focal Deficit Psy/Mental Status: Alert, Normal Affect, Normal Mood - Problem List & Annotations (1) Abdominal abscess SNOMED Code(s): 01946309 Code(s): [id number] - Status: Acute Current Visit: Yes - Problem List Review Problem List Initiated/Reviewed/Updated: Yes - My Orders Last 24 Hours: Active Orders 24 hr Category Date Time Status Bariatric Diet [DIET] Diet 05/07/19 Breakfast Active CBC W/O DIFF,HEMOGRAM [HEME] AM Lab 05/09/19 05:11 Ordered Oral Care [OM.PC] BID Oth 05/06/19 17:30 Ordered Medication Orders Acetaminophen (Tylenol) 650 mg PO Q6H [facility] Last Admin: 05/07/19 16:53 Dose: 650 mg Admin: 05/07/19 10:24 Dose: 650 mg Admin: 05/07/19 05:07 Dose: 650 mg Admin: 05/06/19 21:10 Dose: 650 mg Admin: 05/06/19 15:56 Dose: 650 mg Admin: 05/06/19 09:08 Dose: 650 mg Amlodipine Besylate (Norvasc) 5 mg PO DAILY [facility] Last Admin: 05/07/19 08:51 Dose: 5 mg Admin: 05/06/19 09:08 Dose: 5 mg Benzocaine/Menthol (Cepacol Sore Throat) 1 lozenge MUCMEM Q1H PRN PRN Reason: Sore Throat Bisacodyl (Dulcolax) 5 mg PO DAILY PRN PRN Reason: Constipation Last Admin: 05/07/19 13:08 Dose: 5 mg Diphenhydramine HCl (Benadryl) 50 mg IVPUSH Q4H PRN PRN Reason: Itching Docusate Sodium (Colace) 100 mg PO BID PRN PRN Reason: Constipation Enoxaparin Sodium (Lovenox) 40 mg SUBCUT DAILY [facility] Last Admin: 05/07/19 08:50 Dose: 40 mg Admin: 05/06/19 09:07 Dose: 40 mg Hydromorphone HCl (Dilaudid) 2 - 4 mg PO Q4H PRN PRN Reason: Pain Last Admin: 05/07/19 16:53 Dose: 4 mg Admin: 05/07/19 13:01 Dose: 2 mg Admin: 05/07/19 09:16 Dose: 4 mg Admin: 05/07/19 05:08 Dose: 4 mg Admin: 05/07/19 01:02 Dose: 4 mg Admin: 05/06/19 21:10 Dose: 4 mg Admin: 05/06/19 17:05 Dose: 4 mg Admin: 05/06/19 12:55 Dose: 4 mg Admin: 05/06/19 08:15 Dose: 4 mg Hydroxyzine HCl (Vistaril) 50 mg IM Q4H PRN PRN Reason: Nausea Piperacillin/Tazobactam/ (Dextrose 3.375 gm/ Premix) 50 mls @ 100 mls/hr IV Q6H [facility] Last Admin: 05/07/19 12:56 Dose: 100 mls/hr Admin: 05/07/19 05:10 Dose: 100 mls/hr Admin: 05/06/19 23:42 Dose: 100 mls/hr Admin: 05/06/19 18:07 Dose: 100 mls/hr Admin: 05/06/19 13:07 Dose: 100 mls/hr Admin: 05/06/19 05:15 Dose: 100 mls/hr Admin: 05/05/19 23:20 Dose: 100 mls/hr Admin: 05/05/19 18:19 Dose: 100 mls/hr Dextrose/Lactated Ringer's (Dextrose 5%-Lactated Ringers) 1,000 mls @ 0 mls/hr IV ASDIRECTED [facility] Last Admin: 05/07/19 01:01 Dose: 100 mls/hr Infusion: 05/07/19 00:26 Dose: 100 mls/hr Admin: 05/06/19 14:26 Dose: 100 mls/hr Levothyroxine Sodium (Synthroid) 200 mcg PO DAILY@0730 [facility] Last Admin: 05/07/19 07:23 Dose: 200 mcg Admin: 05/06/19 09:07 Dose: 200 mcg Melatonin (Melatonin) 9 mg PO BEDTIME PRN PRN Reason: Sleep Metoprolol Succinate (Toprol Xl) 100 mg PO DAILY [facility] Ondansetron HCl (Zofran) 4 mg IVPUSH Q4H PRN PRN Reason: Nausea Ondansetron HCl (Zofran Odt) 4 mg PO Q4H PRN PRN Reason: Nausea Last Admin: 05/06/19 08:17 Dose: 4 mg Pantoprazole Sodium (Protonix Iv) 40 mg IV Q24H [facility] Last Admin: 05/07/19 13:09 Dose: 40 mg Admin: 05/06/19 14:47 Dose: 40 mg Admin: 05/05/19 14:21 Dose: 40 mg Senna/Docusate Sodium (Senna Plus) 2 tab PO BID [facility] Last Admin: 05/07/19 08:51 Dose: 2 tab Admin: 05/06/19 21:10 Dose: 2 tab Admin: 05/06/19 09:07 Dose: 2 tab - Assessment Assessment (Free Text/Narrative):: Doing well. - Plan Plan (Free Text/Narrative):: Follow
[2019-05-08] MEDS: Piperacillin/Tazobactam/Dext 3.375 GM in Premix Bag 1 BAG IV SCH ×5 (00:04→23:09)
[2019-05-08] MEDS: HYDROmorphone 2 MG Tab PO PRN ×7 (01:09→23:08)
[2019-05-08] MEDS: Acetaminophen 325 MG Tab PO SCH ×4 (04:59→21:37)
[2019-05-08] MEDS: Levothyroxine 100 MCG Tab PO SCH (07:37)
[2019-05-08] MEDS: Enoxaparin 40 MG/0.4 ML Syringe SUBCUT SCH (08:59)
[2019-05-08] MEDS ORDERED: Polyethylene Glycol 3350 Powder 119 GM Bottle PO ONE (09:00)
[2019-05-08] MEDS: amLODIPine 5 MG Tab PO SCH (09:00)
[2019-05-08] MEDS: Pantoprazole 40 MG Tab.CR PO SCH (10:34)
--- NOTE | 2019-05-08 10:46 | PN ---
DATE OF SERVICE: 05/08/2019 SUBJECTIVE: Dania is feeling like her pain is controlled. She has been up ambulating. Vital signs have been stable. She has been afebrile. Oral intake 2136. Urine output 5850. APRIL drain put out 60 mL of a light pink drainage. She has not had a bowel movement yet. Has passed flatus twice. REVIEW OF SYSTEMS: Remainder of review of systems negative for any pertinent positives and negatives. OBJECTIVE: GENERAL: Dania Horowitz is a pleasant 59-year-old female, alert and orientated. VITAL SIGNS: TPR 97, 50, 18. Blood pressure 118/68. HEENT: Negative. NECK: Supple. HEART: Regular rate and rhythm. LUNGS: Clear. ABDOMEN: Incision looks good. Her midline dhara are out. The laparoscopic sutures look good. APRIL drain intact. Abdominal binder is on. EXTREMITIES: Without peripheral edema. ASSESSMENT: 1. Laparoscopic drainage of abscess, 05/05/2019, Yousuf Phillips MD. 2. Status post exploratory laparotomy with reduction of small bowel volvulus, closure of internal hernia, small bowel resection, and placement of Interceed mesh to limit recurrent adhesion formation. Date of surgery: 04/23/2019. Surgeon: Juan Zuniga MD. PLAN: 1. Rx MiraLAX 119 g one time. 2. Good pulmonary toilet. 3. We will evaluate p.r.n. or in a.m. Amrita Delgado PA-C /[id number]
[2019-05-08] MEDS: Ondansetron 4 MG Tab.DIS PO PRN (19:30)
[2019-05-09] MEDS: Acetaminophen 325 MG Tab PO SCH ×2 (03:11→09:26)
[2019-05-09] MEDS: HYDROmorphone 2 MG Tab PO PRN ×3 (03:12→11:17)
[2019-05-09] MEDS: Piperacillin/Tazobactam/Dext 3.375 GM in Premix Bag 1 BAG IV SCH (05:38)
[2019-05-09] MEDS: Pantoprazole 40 MG Tab.CR PO SCH (07:19)
[2019-05-09] MEDS: Levothyroxine 100 MCG Tab PO SCH (07:19)
[2019-05-09] MEDS ORDERED: Ciprofloxacin 500 MG Tab PO ONE (09:00)
[2019-05-09] MEDS: Enoxaparin 40 MG/0.4 ML Syringe SUBCUT SCH (09:26)
[2019-05-09] MEDS: amLODIPine 5 MG Tab PO SCH (09:26)
--- NOTE | 2019-05-11 10:57 | DISCH ---
FINAL DIAGNOSIS: Postoperative intraabdominal abscess. SECONDARY DIAGNOSES: 1. Bariatric surgery status. 2. Status post recent revision of the jejunojejunostomy secondary to small-bowel obstruction. 3. History of obstructive sleep apnea. Operative procedure was done on 05/05/2019. Diagnostic laparoscopy with drainage of intraabdominal abscess. The patient also had a transverse abdominis plane block placed at that time. The cultures on the abscess grew out Klebsiella, which was sensitive to variety of antibiotic including Zosyn which the patient was on postoperatively as well as the Cipro which she will be sent home on. Should be continued on the present medications plus Dilaudid 2 to 4 mg q.4 hours p.r.n. pain, #40. Cipro 500 mg p.o. b.i.d. x7 days, #40. Tylenol p.r.n. with Amrita Delgado PA-C at [facility] in [place] next 05/12/2019.
== END 2019-05-09 12:30 | disposition home or self-care (01) | DRG 856 ==
LOC: JP.2SS 12:30
PROVIDERS: ADMIT Surgery; ATTEND Surgery
PROC: 0W9G0ZZ Drainage of Peritoneal Cavity, Open Approach (ICD-10-PCS; principal; 2019-05-05)
PROC: 0WJG4ZZ Inspection of Peritoneal Cavity, Percutaneous Endoscopic Approach (ICD-10-PCS; 2019-05-05)
DX: T81.43XA Infection following a procedure, organ and space surgical site, initial encounter (principal); K65.1 Peritoneal abscess; K63.0 Abscess of intestine; B96.1 Klebsiella pneumoniae [K. pneumoniae] as the cause of diseases classified elsewhere; I10 Essential (primary) hypertension; E66.01 Morbid (severe) obesity due to excess calories; G47.33 Obstructive sleep apnea (adult) (pediatric); M19.90 Unspecified osteoarthritis, unspecified site; K21.9 Gastro-esophageal reflux disease without esophagitis; F90.9 Attention-deficit hyperactivity disorder, unspecified type; Z90.49 Acquired absence of other specified parts of digestive tract; Z98.84 Bariatric surgery status; Z90.710 Acquired absence of both cervix and uterus; Z79.890 Hormone replacement therapy; Z16.20 Resistance to unspecified antibiotic; Z68.27 Body mass index [BMI] 27.0-27.9, adult; Z88.2 Allergy status to sulfonamides; R10.84 Generalized abdominal pain
CPT/HCPCS: 36415; 74177; 80048; 85027; 87070; 87075; 87077; 87186; 87205; A9270-GY; C9113; J0171; J0330; J0690; J1100; J1170; J1650; J1885; J2185; J2405; J2543; J2704; J2710; J2795; J3010; J3410; J3490; J7030; J7042; J7050; Q9967

== ENCOUNTER 2020-04-26 09:08 | Day surgery (SDC) | payer MEDICAID ==
[~2020-04-26 09:08] MED LIST changes: -Bupivacaine 0.5% 50 ML MDV ONE; -Lidocaine 1% with EPINEPHrine 1:100,000 50 ML MDV ONE; -Meropenem 500 MG SDV ONE; +Midazolam 1 MG/ML 2 ML SDV ONE; +Propofol 200 MG/20 ML SDV ONE; +fentaNYL 100 MCG/2 ML SDV ONE
[2020-04-26] MEDS ORDERED: Cyanocobalamin (Vitamin B12) 1,000 MCG/ML SDV IM ONE (09:45)
[2020-04-26] MEDS ORDERED: Lactated Ringers 1,000 ML IV ONE (09:45)
[2020-04-26] MEDS ORDERED: Glycopyrrolate 0.2 MG/ML 2 ML SDV IVPUSH ONE (10:45)
[2020-04-26] MEDS ORDERED: MVI, Adult with Vitamin K 10 ML, Thiamine 200 MG, Chromium/Copper/Mang/Selen/Zn 1 ML in... IV ONE ×4 (10:45)
--- NOTE | 2020-05-01 14:46 | OR ---
DATE OF PROCEDURE: 04/26/2020 SURGEON: Juan Zuniga MD PREOPERATIVE DIAGNOSIS: Postprandial abdominal pain. POSTOPERATIVE DIAGNOSES: Postprandial abdominal pain with normal upper gastrointestinal endoscopy, status post Alexi-en-Y gastric bypass. OPERATIVE PROCEDURE: Upper gastrointestinal endoscopy. ANESTHESIA: IV sedation. INDICATION FOR PROCEDURE: This is a 60-year-old female status post Alexi-en-Y gastric bypass, presenting with postprandial upper and mid abdominal pain. Plan is to proceed with upper GI endoscopy with biopsies and/or dilation as indicated. Potential risks including bleeding and perforation were discussed, and the patient wishes to proceed. DETAILS OF PROCEDURE: The patient was taken to the operative room and placed in the left lateral decubitus position. IV sedation was administered after which the upper GI endoscope was passed orally through the length of esophagus, into the gastric pouch, and from there through the gastrojejunostomy and into the level of the small bowel roughly 20 cm distal to the gastrojejunostomy. To that level, there were no abnormalities. There were no areas of significant inflammation or stricturing and there was no retained food or fluid or reflux of bile. Oral exam appeared to be entirely normal. Scope was then withdrawn, and the procedure was then concluded. Given the patient's symptom complex, she probably is suffering from partial small-bowel obstruction. Plan will be to proceed with re-admission in 48 hours and proceed with hopefully limited laparotomy with correction of small-bowel obstruction. Juan Zuniga MD /[id number]
== END 2020-04-26 14:40 | disposition home or self-care (01) ==
LOC: JP.SDS 09:08
PROVIDERS: ATTEND Surgery
DX: R10.10 Upper abdominal pain, unspecified (principal); G47.33 Obstructive sleep apnea (adult) (pediatric); F32.9 Major depressive disorder, single episode, unspecified; E03.9 Hypothyroidism, unspecified; I10 Essential (primary) hypertension; Z88.2 Allergy status to sulfonamides; Z88.8 Allergy status to other drugs, medicaments and biological substances; Z98.84 Bariatric surgery status
CPT/HCPCS: 43235; J2250; J2704; J3010; J3411; J3420; J3490; J7120

== ENCOUNTER 2020-04-28 07:27 | Inpatient (IN) | payer MEDICAID ==
[~2020-04-28 07:27] MED LIST changes: +Bupivacaine 0.5% 50 ML MDV ONE; +Lidocaine 1% with EPINEPHrine 1:100,000 50 ML MDV ONE; +Meropenem 500 MG SDV ONE; -Midazolam 1 MG/ML 2 ML SDV ONE; -Propofol 200 MG/20 ML SDV ONE; -fentaNYL 100 MCG/2 ML SDV ONE
[2020-04-28] MEDS ORDERED: Acetaminophen 500 MG Tab PO ONE (08:00)
[2020-04-28] MEDS ORDERED: Scopolamine 1.5 MG Transdermal Patch TOP SCH (08:00)
[2020-04-28] MEDS ORDERED: Ketamine 500 MG/5 ML MDV IV SCH (08:15)
[2020-04-28] MEDS ORDERED: Ropivacaine 32 ML, dexAMETHasone 8 MG, EPINEPHrine 0.4 MG, Sodium Chloride 0.9% 45.6 ML NERVRT SCH ×4 (08:15)
[2020-04-28] MEDS ORDERED: Ketamine 50 MG in Sodium Chloride 0.9% 49.5 ML IV SCH (08:15)
[2020-04-28] MEDS ORDERED: Magnesium Sulfate 2 GM in Sodium Chloride 0.9% 100 ML IV SCH (08:15)
[2020-04-28] MEDS ORDERED: Succinylcholine 200 MG/10 ML MDV ONE (08:28)
[2020-04-28] MEDS ORDERED: Rocuronium 50 MG/5 ML Vial ONE ×2 (08:28→14:21)
[2020-04-28] MEDS ORDERED: Ondansetron 4 MG/2 ML SDV ONE (08:28)
[2020-04-28] MEDS ORDERED: Neostigmine Methylsulfate 1 MG/ML 5 ML Syringe ONE (08:28)
[2020-04-28] MEDS ORDERED: Dexamethasone 4 MG/ML SDV ONE (08:28)
[2020-04-28] MEDS ORDERED: Glycopyrrolate 0.2 MG/ML 5 ML MDV ONE (08:28)
[2020-04-28] MEDS ORDERED: Propofol 200 MG/20 ML SDV ONE (08:28)
[2020-04-28] MEDS ORDERED: Dextrose 5%-Lactated Ringers 1,000 ML IV SCH (08:30)
[2020-04-28] MEDS ORDERED: fentaNYL 250 MCG/5 ML SDV ONE ×3 (08:31→13:22)
[2020-04-28] MEDS ORDERED: Ondansetron 4 MG/2 ML SDV IVPUSH PRN ×2 (08:36→14:00)
[2020-04-28] MEDS ORDERED: diphenhydrAMINE 25 MG Cap PO PRN (08:36)
[2020-04-28] MEDS ORDERED: diphenhydrAMINE 50 MG/ML SDV IVPUSH PRN ×2 (08:36→14:00)
[2020-04-28] MEDS ORDERED: HYDROmorphone/Normal Saline 15 MG/30 ML PCA IV PRN (08:36)
[2020-04-28] MEDS ORDERED: Naloxone 0.4 MG/ML SDV IVPUSH PRN (08:36)
[2020-04-28] MEDS: cefOXitin 2 GM in Sodium Chloride 0.9% 50 ML IV ONE ×2 (09:46→12:54)
[2020-04-28] MEDS ORDERED: Lactated Ringers 1,000 ML ONE ×2 (10:49→12:57)
[2020-04-28] MEDS ORDERED: fentaNYL 100 MCG/2 ML SDV ONE (10:50)
[2020-04-28] MEDS ORDERED: hydrOXYzine HCL 100 MG/2 ML SDV IM ONE (11:45)
[2020-04-28] MEDS ORDERED: Cyclobenzaprine 10 MG Tab PO PRN (13:12)
[2020-04-28] MEDS ORDERED: Metoclopramide 10 MG/2 ML SDV IVPUSH PRN (14:00)
[2020-04-28] MEDS ORDERED: Acetaminophen 500 MG Tab PO PRN (14:00)
[2020-04-28] MEDS ORDERED: Calcium Gluconate 10% 1 GM/10 ML SDV IVPUSH PRN (14:00)
[2020-04-28] MEDS ORDERED: hydrOXYzine HCL 100 MG/2 ML SDV IM PRN (14:00)
[2020-04-28] MEDS ORDERED: Labetalol 20 MG/4 ML Syringe IVPUSH PRN (14:00)
[2020-04-28] MEDS ORDERED: Albuterol/Ipratropium 3.0-0.5 MG/3 ML Neb Soln INH PRN (14:00)
[2020-04-28] MEDS ORDERED: Pantoprazole 40 MG Vial IVPUSH SCH (15:00)
[2020-04-28] MEDS: cefOXitin 2 GM in Sodium Chloride 0.9% 50 ML IV SCH ×2 (15:46→20:39)
[2020-04-28] MEDS: Acetaminophen 500 MG Tab PO SCH ×2 (15:46→21:45)
[2020-04-28] MEDS: Dextrose 5%-Lactated Ringers 1,000 ML IV SCH ×2 (15:46→22:35)
[2020-04-28] MEDS ORDERED: MVI, Adult with Vitamin K 10 ML, Thiamine 200 MG, Chromium/Copper/Mang/Selen/Zn 1 ML in... IV SCH ×4 (16:00)
[2020-04-28] MEDS: Vitamin A 100,000 Units/2 ML SDV IM SCH (17:25)
[2020-04-28] MEDS: Bisacodyl 5 MG Tab PO SCH (20:41)
[2020-04-28] MEDS: Docusate Sodium 100 MG Cap PO SCH (20:41)
[2020-04-29] MEDS: cefOXitin 2 GM in Sodium Chloride 0.9% 50 ML IV SCH (02:15)
[2020-04-29] MEDS: Dextrose 5%-Lactated Ringers 1,000 ML IV SCH (04:47)
[2020-04-29] MEDS: Acetaminophen 500 MG Tab PO SCH ×3 (05:37→21:56)
[2020-04-29] MEDS ORDERED: Ondansetron 4 MG Tab.DIS PO PRN (08:24)
[2020-04-29] MEDS ORDERED: Dextrose 5%-Lactated Ringers 1,000 ML IV SCH (08:30)
--- NOTE | 2020-04-29 08:58 | CR ---
UGI Limited HISTORY: Postbariatric surgery FINDINGS: Patient swallowed water-soluble contrast. Upright views of the abdomen show no evidence of extravasation or obstruction. IMPRESSION: Status post bariatric surgery No extravasation or obstruction seen
[2020-04-29] MEDS: HYDROmorphone 2 MG Tab PO PRN ×4 (08:59→20:49)
[2020-04-29] MEDS: Levothyroxine 100 MCG Tab PO SCH (09:00)
[2020-04-29] MEDS: Docusate Sodium 100 MG Cap PO SCH ×2 (09:00→20:50)
[2020-04-29] MEDS: Bisacodyl 5 MG Tab PO SCH ×2 (09:00→20:50)
[2020-04-29] MEDS: SCOPOLAMINE PATCH CHECK TOP SCH (09:01)
[2020-04-29] MEDS: Pantoprazole 40 MG Tab.CR PO SCH (09:01)
[2020-04-29] MEDS ORDERED: diphenhydrAMINE 25 MG Cap PO PRN (11:55)
--- NOTE | 2020-04-29 15:21 | PN ---
DATE OF SERVICE: 04/29/2020 SUBJECTIVE: Dania is postoperative day #1. She states her pain is controlled. She has been up ambulating, using her incentive spirometer. She has no other questions or concerns. OBJECTIVE: GENERAL: Dania is a pleasant 60-year-old female. She is alert and orientated. VITAL SIGNS: TPR at 0735; 97.3, 76, 16, blood pressure 98/69. HEENT: Negative. NECK: Supple. HEART: Regular rate and rhythm. LUNGS: Clear. ABDOMEN: Dressing dry and intact. APRIL drain is in the low abdomen status post panniculectomy and it has put out 310 mL of serosanguineous drainage. EXTREMITIES: Without peripheral edema. ASSESSMENT: Exploratory laparotomy with lysis of adhesions: 1. Small bowel resection. 2. Reduction of small bowel volvulus and internal hernia. 3. Placement of Interceed mesh. POSTOPERATIVE DIAGNOSES: Partial small bowel obstruction secondary to: 1. Small bowel volvulus. 2. Distortion of the jejunojejunostomy by traction on the pyloric duodenal limb stump. 3. Extensive intraabdominal adhesions. Date of procedure 04/28/2020. Surgeon: Juan Zuniga MD. PLAN: 1. Discontinue Mata. 2. May shower. 3. Step 3 gastric bypass diet. 4. Decrease IV to 100 mL per hour. 5. Patient will go home with APRIL drain. 6. We will evaluate p.r.n. or in a.m. Amrita Delgado PA-C /[id number]
[2020-04-29] MEDS ORDERED: MVI, Adult with Vitamin K 10 ML, Thiamine 200 MG, Chromium/Copper/Mang/Selen/Zn 1 ML in... IV SCH ×4 (16:00)
[2020-04-29] MEDS: Vitamin A 100,000 Units/2 ML SDV IM SCH (16:02)
[2020-04-30] MEDS: HYDROmorphone 2 MG Tab PO PRN ×3 (01:44→09:38)
[2020-04-30] MEDS: Acetaminophen 500 MG Tab PO SCH (05:38)
[2020-04-30] MEDS: Levothyroxine 100 MCG Tab PO SCH (07:38)
[2020-04-30] MEDS: Pantoprazole 40 MG Tab.CR PO SCH (07:38)
[2020-04-30] MEDS ORDERED: Magnesium Hydroxide 400 MG/5 ML Susp 30 ML Cup PO ONE (09:00)
[2020-04-30] MEDS ORDERED: Vitamin A 10,000 Unit Cap PO SCH (09:00)
[2020-04-30] MEDS ORDERED: Cyanocobalamin (Vitamin B12) 1,000 MCG/ML SDV IM ONE (09:00)
[2020-04-30] MEDS: Docusate Sodium 100 MG Cap PO SCH (09:39)
[2020-04-30] MEDS: Bisacodyl 5 MG Tab PO SCH (09:39)
[2020-04-30] MEDS: SCOPOLAMINE PATCH CHECK TOP SCH (09:40)
--- NOTE | 2020-04-30 14:41 | DISCH ---
CORRECTED REPORT: FINAL DIAGNOSES: 1. Partial small bowel obstruction secondary to: a. Small bowel volvulus. b. Distortion of jejunojejunostomy by traction of biliopancreatic limb stump. c. Extensive intraabdominal adhesions. 2. Bariatric surgery status. 3. Low zinc level. 4. History of ascending aorta enlargement. 5. History of obstructive sleep apnea. 6. History of attention deficit hyperactivity disorder and depression. OPERATIVE PROCEDURES: Done on 04/28/2020, exploratory laparotomy with lysis of adhesions: 1. Small bowel resection. 2. Reduction of small bowel volvulus and closure of internal hernia. 3. Placement of Interceed mesh to limit recurrent adhesion formation. SUMMARY: This is a 60-year-old presenting with chronic postprandial abdominal pain and exaggerated weight loss. She had an upper endoscopy last week, which was normal and by clinical criteria appears to have a partial small bowel obstruction. On the date of admission, the patient underwent exploratory laparotomy with the above diagnoses being identified. Postoperatively, the patient has done well. She is tolerating step-3 diet and will be discharged home on step-3 diet times 2 weeks and then will go to step-4 diet. Preoperatively, the patient was noted to have a very low Vitamin A level. During the hospital stay she received three IM doses of 100,000 Units of Vitamin A, and will be sent home on Vitamin A 50,000 Units [id number]. MEDICATIONS ON DISCHARGE: Include her previous medications plus Dilaudid 2 to 4 mg p.o. q.4 hours p.r.n. pain #42, zinc oxide 50 mg p.o. daily, Tylenol 1 g p.o. q.i.d. p.r.n., and we will send her home with 2 doses of milk of magnesia to take as needed for bowel activity, and Vitamin A as above. The patient needs to be worked until around 2:30 or so. So her followup appointment will be with Amrita Delgado at [facility] on 05/09/2020 at 4:15 p.m.
--- NOTE | 2020-05-02 08:25 | OR ---
DATE OF PROCEDURE: 04/28/2020 SURGEON: Juan Zuniga MD PREOPERATIVE DIAGNOSIS: Partial small-bowel obstruction. POSTOPERATIVE DIAGNOSES: Partial small-bowel obstruction secondary to: 1. Small bowel volvulus. 2. Distortion of jejunojejunostomy by traction on biliopancreatic limb stump. 3. Extensive intraabdominal adhesions. OPERATIVE PROCEDURES: 1. Exploratory laparotomy with lysis of adhesions and: a. Small bowel resection (73432). b. Reduction of small bowel volvulus and closure of internal hernia (90949). c. Placement of Interceed mesh to limit recurrent adhesion formation between pelvic and abdominal wall and underlying viscera (66661). ANESTHESIA: General. MEDICAL ASST: Amrita Delgado PA-C INDICATIONS: This is a 60-year-old female presenting with what appears to be a partial small-bowel obstruction. The plan is to proceed with an exploratory laparotomy with lysis of adhesions and/or bowel resection as indicated. The potential risks of the procedure, including bleeding, infection, leaks from various GI tract closures, and problems with recurrence of the problem over a time, were reviewed, and the patient wishes to proceed. She is also noted to have some intraperitoneal mesh, which will likely need to be divided. We will make efforts to avoid having to remove that, but she is made aware that there is some possibility of that becoming infected and having to be subsequently removed as well and wishes to proceed. DETAILS OF PROCEDURE: The patient was taken to the operating room, where after general endotracheal anesthesia was induced, a Mata catheter was inserted and the abdomen prepped and draped. An upper midline incision from roughly 3 fingerbreadths below the xiphoid to what would have been roughly the level of the umbilicus with that having been previously removed was carried down through the skin and subcutaneous tissue, and most of the incision was occupied with a layer of polypropylene mesh placed in the subfascial level. This was then divided for the length of the incision and given the subsequent bowel work was walled off bowel with meropenem and Zyvox-soaked gauze so as to avoid direct contamination of the mesh. The area of the small bowel was then examined. The patient was noted to have a focal small bowel volvulus with roughly a 2-foot section of the common limb prolapsing in between the mesenteric defect underneath the jejunojejunostomy. This was freed up and that defect subsequently closed with a running 2-0 silk stitch. After reduction of the volvulus, the patient was still noted to have acute angulation of the point where the Alexi limb entered the jejunojejunostomy. This appeared to be related in part to the traction of the jejunojejunostomy by the mesenteric pull on the biliopancreatic limb stump. That segment of bowel was then resected with a DAVID stapler, as was the underlying mesentery, and there still appeared to be some narrowing at the point where the Alexi limb entered the jejunojejunostomy. The Alexi limb flush with the jejunojejunostomy was then divided with the DAVID stapler, and a small segment of this was then also resected with the underlying mesentery likewise being divided with mesenteric dhara. The GI tract continuity was then re-established with a [id number] enteroenterostomy between the Alexi limb and the bowel roughly 20 cm distal to the original jejunojejunostomy, this being accomplished with 2 internal firings of the Endo DAVID 60 mm stapler. The common opening was then closed transversely with the same stapler and angles anastomosed and reinforced with a 3-0 Vicryl stitch and the mesenteric defect with a 2-0 silk stitch. At this point, all of the instruments had been taken off the field that were used in the bowel work, and new gowns and gloves were obtained and the gauze then removed covering the mesh, and the abdomen was irrigated with a Zyvox and meropenem-containing saline solution once again. The mesh was then approximated with a running #1 Prolene stitch and the fascia overlying this closed with a #2 Vicryl stitch. Prior to closure of the fascia, Interceed mesh was placed underneath the incision and from there down towards the pelvis to limit recurrent adhesion formation between those surfaces and the underlying viscera. Upon completion of the fascial closure, then the subcutaneous tissue was closed with 2 layers of 3-0 and 4-0 Vicryl stitch deep and the skin with dhara. Prior to closure, a transverse abdominis plane block was placed bilaterally and the incision anesthetized with 1% lidocaine mixed with Marcaine and the patient taken to the recovery room in satisfactory condition. Physician diploma dental assistant Amrita Delgado played an essential role in assisting in this case, helping to position the patient and retract structures as needed as well as suturing and cutting sutures when indicated. Her presence improved patient safety and decreased operative time. Juan Zuniga MD /[id number]
== END 2020-04-30 12:30 | disposition home or self-care (01) | DRG 331 ==
LOC: JP.SDS 07:27 → JP.SDSSCHI 07:27 → EDSTATUS 10:15 → JP.MS 11:20 → UNDOADMIN 11:20
PROVIDERS: ADMIT Surgery; ATTEND Surgery
PROC: 0DS80ZZ Reposition Small Intestine, Open Approach (ICD-10-PCS; principal; 2020-04-28)
PROC: 0DB80ZZ Excision of Small Intestine, Open Approach (ICD-10-PCS; 2020-04-28)
PROC: 0DQV0ZZ Repair Mesentery, Open Approach (ICD-10-PCS; 2020-04-28)
PROC: 3E0M05Z Introduction of Adhesion Barrier into Peritoneal Cavity, Open Approach (ICD-10-PCS; 2020-04-28)
DX: K56.51 Intestinal adhesions [bands], with partial obstruction (principal); K56.2 Volvulus; G47.33 Obstructive sleep apnea (adult) (pediatric); F32.9 Major depressive disorder, single episode, unspecified; F90.9 Attention-deficit hyperactivity disorder, unspecified type; Z98.84 Bariatric surgery status
CPT/HCPCS: 36415; 74240; 74240-26; 84443; 88305; 94762; A9270-GY; C9113; J0171; J0330; J0694; J1100; J1170; J2020; J2185; J2405; J2704; J2710; J2795; J3010; J3410; J3411; J3420; J3475; J3490; J7050; J7120; J7121

== ENCOUNTER 2020-05-16 12:30 | Inpatient (IN) | payer MEDICAID, OTHER ==
[2020-05-16] MEDS ORDERED: Acetaminophen 325 MG Tab PO PRN (13:05)
[2020-05-16] MEDS ORDERED: Acetaminophen 650 MG Supp RECTAL PRN (13:05)
[2020-05-16] MEDS ORDERED: Naloxone 0.4 MG/ML SDV IV PRN (14:00)
[2020-05-16] MEDS: HYDROmorphone/Normal Saline 15 MG/30 ML PCA IV PRN (14:05)
[2020-05-16] MEDS: Dextrose 5%-Lactated Ringers 1,000 ML IV SCH ×2 (14:08→18:50)
[2020-05-16] MEDS: Ondansetron 4 MG/2 ML SDV IVPUSH PRN ×2 (14:15→19:28)
[2020-05-16] MEDS ORDERED: Sodium Chloride 0.9% 10 ML Syringe FLUSH ONE (14:18)
[2020-05-16] MEDS ORDERED: Iopamidol 612 MG/ML 100 ML Bottle IV SCH (14:30)
[2020-05-16] MEDS ORDERED: Sodium Chloride 0.9% 100 ML IV SCH (14:30)
[2020-05-16] MEDS ORDERED: Pantoprazole 40 MG Vial IV SCH (15:00)
--- NOTE | 2020-05-16 16:01 | CRLCT ---
INDICATION: Abdominal pain. COMPARISON: Ultrasound 14 May 2019. TECHNIQUE: 100 mL Isovue-300 IV contrast. FINDINGS: Gastric bypass changes. Dense focal fat around the falciform ligament. Moderate diffuse post cholecystectomy intrahepatic ductal dilatation. Bilateral UPJ configuration versus prominent parapelvic cysts. Small nonobstructing calculus lateral mid pole on the left is 3 mm. Rectus diastasis and midline periumbilical ventral hernia. Moderate length of non dilated nonincarcerated small bowel extends into the hernia sac which extends inferiorly in the pannus. Simple appearing fluid at the lateral and inferior margin of the sac. Width of the mouth is roughly 2.4 cm. No dilated or inflamed large or small bowel. Transverse colon is decompressed giving it a relative low attenuation wall thickening appearance. Redundant sigmoid. Small amount of free fluid in the dependent pelvis. Unremarkable urinary bladder. Uterus and adnexal structures are not apparent and presumably surgically absent. Normal appendix. Diffuse soft tissue edema particularly in the ventral abdominal wall and circumferentially through the pelvis into the bilateral lower extremities. No significant finding in the visualized lung bases. IMPRESSION: 1. Large ventral incisional hernia at the umbilicus with hernia sac extending inferiorly in the pannus with nondilated small bowel and ascites. 2. Moderate diffuse soft tissue edema. 3. Bilateral UPJ configuration favored over peripelvic cysts. No ureteral dilatation appreciated. No renal parenchymal loss or abnormal enhancement. Small nonobstructing left caliceal calculus. 4. Chronic cholecystectomy changes. 5. Gastric bypass changes. Please note that all CT scans at this facility use dose modulation, iterative reconstruction, and/or weight-based dosing when appropriate to reduce radiation dose to as low as reasonably achievable. Dictated by Abdiel Paniagua MD @ May 16 2020 4:00PM Signed by Dr. Abdiel Paniagua @ May 16 2020 4:00PM
--- NOTE | 2020-05-16 18:43 | HP ---
HISTORY OF PRESENT ILLNESS: Dania presented to the clinic today reporting that she was having (excruciating) pain since she had surgery. She states that she has a lump to the right of her incision, has chills, sweats. Unsure if she has a fever or not because she does not have a thermometer. Yesterday, she was only able to eat 4 oyster crackers and not able to drink anything at all except a few sips of water. After eating and drinking, pain increases and she has been taking Dilaudid and Vistaril for pain. Bowel movements have been soft and daily, and she has been taking MiraLAX and Senokot-S. Dania had an exploratory laparotomy with lysis of adhesions, small bowel resection, reduction of small bowel volvulus and closure of internal hernia and placement of Interceed mesh to limit recurrent adhesion formation on 04/28/2020; surgeon Juan Zuniga. She initially postop after being discharged from the hospital, had quite severe constipation. She was instructed to take 119 g of MiraLAX along with Dulcolax tabs and a saline enema. She has continued with MiraLAX and stool softeners and her bowels have been normal and daily. She states the pain was progressively getting better until 05/09/2020. Her step dad and mom stayed with her because her step dad had a Port-A-Cath put in. During the middle of the night, he fell and she went to check on him and told him that she could not lift him, but he suddenly said he could not breathe and she states that out of instinct she went and helped him, lifted him back up into the recliner. She felt this was early Saturday morning between 1 and 3. She said she felt a burning sensation in her abdomen and her right lower abdomen continued to be very painful. It is distended she states and the distention is extending to the right lateral part of her lower abdomen. REVIEW OF SYSTEMS: CONSTITUTIONAL: Denies any weight loss. Weight is stable. Has had chills. SKIN: No rashes. HEENT: Denies headache, ear pain, loss of hearing. No visual disturbances. CARDIOVASCULAR: No chest pain or palpitations. RESPIRATORY: No cough or shortness of breath. ENDOCRINE: Negative. HEMATOLOGIC: Negative. GI: As above. : No UTI signs and symptoms. MUSCULOSKELETAL: No joint pain or swelling. NEUROLOGIC: No history of neurological symptoms, spells, or memory changes. PSYCHIATRIC: States she is getting very depressed. She is not able to eat or drink and has a hard time dealing with the increasing amount of pain. Remainder of review of systems negative for any pertinent positives and negatives. MEDICATION: 1. Dilaudid 2 mg 1 every 4 hours p.r.n. pain. 2. Vistaril 25 mg 1 every 4 hours. 3. Mag-oxide 400 mg p.o. daily. 4. Zofran ODT 4 mg every 4 hours p.r.n. nausea. 5. MiraLAX 17 g twice daily. 6. Acetaminophen 325 mg 1 to 2 every 6 hours p.r.n. pain. 7. Synthroid 200 mcg tablets p.o. daily. 8. Nizoral 2% topical cream, use topical to affected area. 9. B complex 1 daily. 10.Vitamin D 1000 international units 1 daily. 11.Calcium citrate 630 mg once daily. 12.Papaya enzyme p.r.n. 13.Flintstones multivitamin one b.i.d. 14.Vitamin B12 5000 mcg sublingual daily. 15.Colace 100 mg p.o. one time daily. PAST MEDICAL HISTORY: 1. Ascending aortic enlargement. 2. Benign lipomatosis neoplasm. 3. Central sleep apnea. 4. Diaphragmatic hernia. 5. Family history of cerebral aneurysm. 6. Marked hepatomegaly. 7. Hypertension. 8. Obstructive sleep apnea. PAST SURGICAL HISTORY: 1. Back surgery 4 to 5 years ago. 2. Colonoscopies for colon polyps. 3. EGDs. 4. Cholecystectomy. 5. Hysterectomy on 08/12/2000. 6. Knee arthroscopy. 7. Alexi-en-Y gastric bypass surgery on 07/24/2008. 8. Abdominal panniculectomy and lipectomy on 02/22/2020. 9. Ureteroscopy with stone extraction and stent placement on 01/02/2016. 10.Cerebral angiogram on 07/15/2017. 11.Cystoscopy, right retrograde pyelogram, right ureteral stent placement on 09/11/2019. 12.Right stent exchange, retrograde pyelogram, right ureteroscopic stone extraction on 09/22/2019. 13.Excision of abdominal seroma on 02/22/2020. 14.Tonsillectomy on 04/28/2020. 15.Small-bowel resection on 04/23/2019. 16.Tubal ligation. 17.Ventral hernia repair on 10/07/2019. ALLERGIES: TO SULFA MEDICATION AND CELEBREX. FAMILY HISTORY: Noncontributory. SOCIAL HISTORY: . 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 One son. PHYSICAL EXAMINATION: GENERAL: Lor is a pleasant 60-year-old female, very pale, in acute distress. Height 67 inches, weight is 143.8 pounds. VITAL SIGNS: TPR; 98, 71, 16, blood pressure 104/66. HEENT: Negative. NECK: Supple. HEART: Regular rate and rhythm. LUNGS: Clear. ABDOMEN: She has an increased amount of ascites in the right lower quadrant that extends to the left. She did have a drain in for ascites secondary to her panniculectomy that was done in [place], [place] on 02/22/2020. The APRIL drain was put in when she had her last surgery on 04/28/2020, at [facility]. Abdomen is very tender in all 4 quadrants, difficult to lay flat. EXTREMITIES: Without peripheral edema. Deep tendon reflexes are 2+, equal bilaterally. NEUROLOGIC: Cranial nerves 2 through 12 intact. PSYCHIATRIC: Mood and affect appropriate. ASSESSMENT: 1. Abdominal ascites. 2. Dehydration. 3. Status post exploratory laparotomy with lysis of adhesions, small bowel resection, reduction of small bowel volvulus, closure of internal hernia, and placement of Interceed mesh. Date 04/28/2020. 4. Status post Alexi-en-Y gastric bypass surgery. 5. Unspecified surgical malabsorption. 6. B12 deficiency. 7. Hypothyroidism. PLAN: 1. Admit to inpatient [facility] for abdominal ascites, dehydration. 2. Diet n.p.o. 3. Up ad suyapa. 4. Vital signs every 4 hours. 5. D5 LR at 150 mL/hour. 6. Check COVID-19. 7. CBC, magnesium, phos, and CMP. 8. Protonix 40 mg IV daily. 9. Intake and output. 10.CT scan of abdomen and pelvis with IV contrast only stat, call with results. 11.Zofran 4 mg IV q.4 hours p.r.n. nausea. 12.Synthroid 200 mcg p.o. daily. 13.SCDs. 14.Tylenol 650 mg p.o. every 4 hours p.r.n. pain or fever. 15.Dilaudid MEDICAL MANAGER. 16.To be called with results of CT scan. 17.Plan of hospitalization 2 nights, 3 days. 18.We will evaluate p.r.n. or in a.m. Amrita Delgado PA-C /[id number]
[2020-05-16] MEDS ORDERED: Metoclopramide 10 MG/2 ML SDV IVPUSH PRN (22:07)
[2020-05-16] MEDS ORDERED: Metoclopramide 10 MG/2 ML SDV IVPUSH ONE (22:08)
[2020-05-17] MEDS: Ondansetron 4 MG/2 ML SDV IVPUSH PRN ×3 (00:07→08:23)
[2020-05-17] MEDS: Dextrose 5%-Lactated Ringers 1,000 ML IV SCH ×4 (04:17→20:49)
[2020-05-17] MEDS ORDERED: Lidocaine 1% with EPINEPHrine 1:100,000 50 ML MDV ONE (06:53)
[2020-05-17] MEDS ORDERED: Bupivacaine 0.5% 50 ML MDV ONE (06:53)
[2020-05-17] MEDS ORDERED: Meropenem 500 MG SDV ONE (06:53)
[2020-05-17] MEDS: HYDROmorphone/Normal Saline 15 MG/30 ML PCA IV PRN (07:06)
[2020-05-17] MEDS: Levothyroxine 100 MCG Tab PO SCH (07:56)
[2020-05-17] MEDS ORDERED: Dexamethasone 4 MG/ML SDV ONE (10:28)
[2020-05-17] MEDS ORDERED: Rocuronium 50 MG/5 ML Vial IVPUSH ONE (10:28)
[2020-05-17] MEDS ORDERED: Glycopyrrolate 0.2 MG/ML 5 ML MDV ONE (10:28)
[2020-05-17] MEDS ORDERED: Ondansetron 4 MG/2 ML SDV ONE (10:28)
[2020-05-17] MEDS ORDERED: Succinylcholine 200 MG/10 ML MDV ONE (10:28)
[2020-05-17] MEDS ORDERED: fentaNYL 250 MCG/5 ML SDV ONE ×2 (10:28→12:12)
[2020-05-17] MEDS ORDERED: Propofol 200 MG/20 ML SDV ONE (10:28)
[2020-05-17] MEDS ORDERED: Neostigmine Methylsulfate 1 MG/ML 5 ML Syringe ONE (10:28)
[2020-05-17] MEDS ORDERED: Acetaminophen 500 MG Tab PO ONE (10:45)
[2020-05-17] MEDS ORDERED: ceFAZolin 2 GM in Premix Bag 1 BAG IV ONE (11:45)
[2020-05-17] MEDS ORDERED: Ketamine 50 MG in Sodium Chloride 0.9% 49.5 ML IV SCH (11:45)
[2020-05-17] MEDS ORDERED: Ropivacaine 32 ML, dexAMETHasone 8 MG, EPINEPHrine 0.4 MG, Sodium Chloride 0.9% 45.6 ML NERVRT SCH ×4 (11:45)
[2020-05-17] MEDS ORDERED: Ketamine 500 MG/5 ML MDV IV SCH (11:45)
[2020-05-17] MEDS ORDERED: Mupirocin Oint 22 GM Tube ONE (12:50)
[2020-05-17] MEDS ORDERED: hydrOXYzine HCL 100 MG/2 ML SDV IM ONE (13:03)
[2020-05-17] MEDS ORDERED: FLU VACC QS2020-21(6MOS UP)/PF 60 MCG/0.5 ML SYRINGE IM ONE (14:00)
[2020-05-17] MEDS ORDERED: Cyclobenzaprine 10 MG Tab PO PRN (14:22)
[2020-05-17] MEDS: ceFAZolin 2 GM in Premix Bag 1 BAG IV SCH (17:22)
[2020-05-17] MEDS: Pantoprazole 40 MG Tab.CR PO SCH (17:22)
[2020-05-17] MEDS: Docusate Sodium 100 MG Cap PO SCH (20:48)
[2020-05-18] MEDS: ceFAZolin 2 GM in Premix Bag 1 BAG IV SCH ×2 (02:35→09:06)
[2020-05-18] MEDS: HYDROmorphone/Normal Saline 15 MG/30 ML PCA IV PRN (04:02)
[2020-05-18] MEDS: hydrOXYzine HCL 100 MG/2 ML SDV IM PRN (06:24)
[2020-05-18] MEDS: Levothyroxine 100 MCG Tab PO SCH (07:29)
[2020-05-18] MEDS: Pantoprazole 40 MG Tab.CR PO SCH (07:29)
[2020-05-18] MEDS: Dextrose 5%-Lactated Ringers 1,000 ML IV SCH ×2 (07:41→18:15)
--- NOTE | 2020-05-18 08:38 | PN ---
DATE OF SERVICE: 05/18/2020 SUBJECTIVE: Dania is postoperative day#1. She states her pain has been controlled. Vital signs have been stable. Oral intake 300. Urine output via Mata catheter is 1775. Her Mata catheter was removed early this a.m. APRIL drain put out 10 mL of a light pink drainage. REVIEW OF SYSTEMS: Remainder of review of systems negative for any pertinent positives and negatives. OBJECTIVE: GENERAL: Dania is a pleasant 60-year-old female. She is alert, orientated. VITAL SIGNS: TPR is 98.8, 47, 18, blood pressure 142/84. HEENT: Negative. NECK: Supple. HEART: Regular rate and rhythm. LUNGS: Clear. ABDOMEN: Dressings dry and intact. APRIL drain intact. EXTREMITIES: Without peripheral edema. ASSESSMENT: 1. Open repair of recurrent incarcerated incisional hernia with mesh. 2. Excision of peritoneal lesion overlying abdominal wall. 3. Placement of Interceed mesh. OPERATIVE DIAGNOSES: 1. Recurrent incarcerated incisional hernia. 2. Nodular lesion abdominal wall peritoneum, 12 cm total (2 pieces). 3. Date of surgery: 05/17/2020. Surgeon: Juan Zuniga MD. PLAN: 1. Tylenol 1 g p.o. q.6 hours. 2. Step 2 gastric bypass diet. 3. Dulcolax 2 tablets b.i.d. until the patient has bowel movement. 4. Decrease IV to 100 mL per hour. 5. Increase Flexeril 10 mg to q.6 hours. 6. Atarax 25 mg q.4 hours p.r.n. additional pain. 7. Melatonin 9 mg at bedtime p.r.n. sleep. 8. Continue use of incentive spirometer. 9. We will evaluate p.r.n. or in a.m. Amrita Delgado PA-C /[id number]
[2020-05-18] MEDS: Docusate Sodium 100 MG Cap PO SCH ×2 (09:03→20:12)
[2020-05-18] MEDS: Acetaminophen 500 MG Tab PO SCH ×3 (09:03→20:11)
[2020-05-18] MEDS: Bisacodyl 5 MG Tab PO SCH ×2 (09:03→20:12)
[2020-05-18] MEDS: hydrOXYzine HCl 25 MG Tab PO PRN ×3 (09:11→17:21)
[2020-05-18] MEDS: Cyclobenzaprine 10 MG Tab PO PRN ×2 (13:18→20:18)
--- NOTE | 2020-05-18 19:20 | PN ---
DATE OF SERVICE: 05/17/2020 The patient has been afebrile with stable vital signs. She has had some nausea and a small volume emesis overnight. This improved by adding some Reglan. The CT scan shows a large recurrent hernia with some bowel in it, likely resulting in some of the nausea. Plan will be to proceed with open repair of this with mesh later today. Potential risks of the procedure including bleeding, infection, injury to underlying viscera, problems with the mesh becoming infected, or the hernia recurring were all reviewed as well as remote possibility of cardiopulmonary, septic, or hemorrhagic complications leading to , and the patient wishes to proceed. Surgery will be undertaken later on today. Juan Zuniga MD /[id number]
[2020-05-18] MEDS: Melatonin 3 MG Tab PO PRN (20:55)
[2020-05-19] MEDS: Acetaminophen 500 MG Tab PO SCH ×4 (02:51→20:27)
[2020-05-19] MEDS: Dextrose 5%-Lactated Ringers 1,000 ML IV SCH ×2 (04:25→14:38)
[2020-05-19] MEDS: Cyclobenzaprine 10 MG Tab PO PRN ×3 (04:27→16:36)
[2020-05-19] MEDS ORDERED: oxyCODONE 5 MG Tab PO PRN (05:59)
[2020-05-19] MEDS: hydrOXYzine HCL 100 MG/2 ML SDV IM PRN (06:04)
[2020-05-19] MEDS: oxyCODONE 5 MG Tab PO PRN ×4 (06:51→20:27)
[2020-05-19] MEDS: Levothyroxine 100 MCG Tab PO SCH (07:32)
[2020-05-19] MEDS: Pantoprazole 40 MG Tab.CR PO SCH (07:32)
--- NOTE | 2020-05-19 08:24 | PN ---
DATE OF SERVICE: 05/19/2020 SUBJECTIVE: Dania states she is feeling better. Her pain is controlled. She is passing gas. Her FALL INTERN was discontinued and she was started on oxycodone and that is helping with the pain. Afebrile. Oral intake 1860. Urine output 2750. APRIL drain put out 25 mL of a light pink drainage. REVIEW OF SYSTEMS: Remainder of review of systems negative for any pertinent positives and negatives. OBJECTIVE: GENERAL: Dania Ramirez is a pleasant 60-year-old female. She is alert and oriented. VITAL SIGNS: TPR is 97.3, 56, 16, blood pressure 139/77. HEENT: Negative. NECK: Supple. HEART: Regular rate and rhythm. LUNGS: Clear. ABDOMEN: Dressings dry and intact. Abdominal binder is on. EXTREMITIES: Without peripheral edema. ASSESSMENT: 1. Open repair of recurrent incarcerated incisional hernia with mesh. 2. Excision of peritoneal lesion overlying abdominal wall. 3. Placement of Interceed mesh. POSTOPERATIVE DIAGNOSES: 1. Recurrent incarcerated incisional hernia. 2. Nodular lesion, abdominal wall, peritoneum, 12 cm total (2 pieces). 3. Date of surgery: 05/17/2020. Surgeon: Juan Zuniga MD. PLAN: 1. Discontinue continuous pulse ox and cardiac monitoring. 2. MiraLAX 119 g p.o. 1 time today. 3. Communication order no straw due to the patient status post Alexi-en-Y gastric bypass surgery. 4. Continue ambulation and incentive spirometer. 5. We will evaluate p.r.n. or in a.m. Amrita Delgado PA-C /[id number]
[2020-05-19] MEDS ORDERED: Polyethylene Glycol 3350 Powder 119 GM Bottle PO ONE (09:00)
[2020-05-19] MEDS: Docusate Sodium 100 MG Cap PO SCH ×2 (09:08→20:27)
[2020-05-19] MEDS: Bisacodyl 5 MG Tab PO SCH ×2 (09:08→20:27)
[2020-05-19] MEDS: Ondansetron 4 MG/2 ML SDV IVPUSH PRN ×2 (16:17→20:28)
[2020-05-19] MEDS: hydrOXYzine HCl 25 MG Tab PO PRN (18:20)
[2020-05-19] MEDS: Melatonin 3 MG Tab PO PRN (20:27)
[2020-05-20] MEDS: Dextrose 5%-Lactated Ringers 1,000 ML IV SCH (00:41)
[2020-05-20] MEDS: oxyCODONE 5 MG Tab PO PRN ×3 (01:41→09:45)
[2020-05-20] MEDS: Acetaminophen 500 MG Tab PO SCH ×2 (01:41→08:39)
[2020-05-20] MEDS: Ondansetron 4 MG/2 ML SDV IVPUSH PRN (01:45)
[2020-05-20] MEDS: Bisacodyl 5 MG Tab PO SCH (08:39)
[2020-05-20] MEDS: Pantoprazole 40 MG Tab.CR PO SCH (08:39)
[2020-05-20] MEDS: Levothyroxine 100 MCG Tab PO SCH (08:39)
[2020-05-20] MEDS: Docusate Sodium 100 MG Cap PO SCH (08:39)
[2020-05-20] MEDS: Cyclobenzaprine 10 MG Tab PO PRN (12:41)
--- NOTE | 2020-05-20 17:13 | DISCH ---
ADMISSION DIAGNOSES: 1. Abdominal pain. 2. Dehydration. 3. Status post Alexi-en-Y gastric bypass surgery. 4. Unspecified surgical malabsorption. 5. B12 deficiency. 6. Vitamin D deficiency. 7. Hypothyroidism. 8. Obstructive sleep apnea. 9. Attention-deficit hyperactivity disorder. 10.Ascending aortic enlargement. 11.History of major depression. DISCHARGE DIAGNOSES: 1. Open repair of incarcerated incisional hernia with mesh. 2. Excision of peritoneal lesion overlying abdominal wall. 3. Placement of Interceed mesh. POSTOPERATIVE DIAGNOSES: 1. Recurrent incarcerated incisional hernia. 2. Nodular lesion abdominal wall peritoneum 12 cm total (2 pieces). DATE OF SURGERY: 05/17/2020. SURGEON: Juan Zuniga MD. HISTORY: Dania Horowitz is a pleasant 60-year-old female who presented to the clinic with severe abdominal pain, swelling in her lower abdomen, nausea, vomiting, and constipation. She had had an exploratory laparotomy with lysis of adhesions, small bowel resection, reduction of small bowel volvulus, closure of internal hernia, and placement of Interceed mesh on 04/28/2020 and lifted her step-father in an emergent situation and felt a burning sensation in her abdomen, and it became very distended and painful. After a CT revealed a large ventral hernia, after preoperative evaluation and discussion of possible risks and possible complications, she wished to proceed with surgical procedure. HOSPITAL COURSE: Dania had her surgery on 05/17/2020. She had no operative complications. On postoperative day 1, she continued with the CLINICAL RESEARCH ANALYST. She was started on bowel stimulation and step-2 gastric bypass diet. On 05/19/2020, postop day 2, she was continued with bowel stimulation with addition of MiraLAX and changed to oral pain medication. IV was saline locked. Vital signs did remain stable, and pain was controlled. On postoperative day 3, she was able to be discharged to home without any complications. PHYSICAL EXAMINATION: GENERAL: Dania is a pleasant 60-year-old female. VITAL SIGNS: Height is 5 feet 7 inches, weight 143 pounds. TPR is 98, 58, 16; blood pressure 133/76. HEENT: Negative. NECK: Supple. HEART: Regular rate and rhythm. LUNGS: Clear. ABDOMEN: Aquacel dressings on. Abdominal binder is on. She does have a APRIL drain that is draining a clear pink drainage which she will go home with. It is more in the panniculectomy area. EXTREMITIES: Without peripheral edema. DISPOSITION: Discharged to home. CONDITION: Stable and improving. FOLLOWUP: Appointment with Amrita Delgado PA-C, at [facility] on 05/27/2020 at 10 a.m. MEDICATIONS: New Prescriptions: 1. Flexeril 10 mg q.6 hours p.r.n. muscle spasms, #30. 2. Oxycodone 5 mg q.4 hours p.r.n. pain, #42. 3. Tylenol 1000 mg every 6 hours p.r.n. pain. To resume home medications as she took prior to admission. DIET: Step-3 gastric bypass diet. Drink 8 to 10 glasses of water a day. ACTIVITY: No lifting greater than 10 pounds for 6 weeks. Other activity: Walk at least 6 times daily inside your home. Driving: Do not drive for 1 week and while on pain medication. Shower/bathing: May shower. Notify provider if any fever, increased pain, swelling, redness, nausea, or vomiting. Keep site clean and dry. Take off Aquacel dressing on 05/23/2020. SPECIAL INSTRUCTIONS: 1. Use incentive spirometer 10 times every hour while awake for 1 week. 2. Empty, strip, measure, and record APRIL drain 4 times a day and bring record of drainage to clinic appointment.
--- NOTE | 2020-05-22 12:16 | OR ---
DATE OF PROCEDURE: 05/17/2020 SURGEON: Juan Zuniga MD PREOPERATIVE DIAGNOSIS: Recurrent incisional hernia. POSTOPERATIVE DIAGNOSES: 1. Recurrent incarcerated incisional hernia. 2. Nodular lesion underlying abdominal wall peritoneum. OPERATIVE PROCEDURE: Exploratory laparotomy with: 1. Open repair of recurrent incarcerated incisional hernia with mesh (00302, [id number]). 2. Excision of peritoneal lesion (12 cm) underlying abdominal wall to the right of the midline (69777). 3. Placement of Interceed mesh to limit recurrent adhesion formation between pelvic and abdominal graves and underlying viscera (99996). ANESTHESIA: General. INDICATION FOR PROCEDURE: A 60-year-old presenting with a recurrent incisional hernia. This has prolapsed through the inferior aspect of previous incision, brought some mesh that was located there, and then appears to have prolapsed into the seroma cavity of a previous panniculectomy. Plan is to proceed with an exploratory laparotomy with repair of the hernia with mesh. Potential risks of the procedure including bleeding, infection, injury to underlying viscera, problems with the mesh becoming infected, or hernia recurring were all reviewed, and the patient wishes to proceed. DETAILS OF PROCEDURE: The patient was taken to the operating room, placed in a supine position. After general endotracheal anesthesia was induced, a Mata catheter was inserted, and the abdomen prepped and draped. A midline incision was then made from somewhere above the umbilicus to the pubis. This was carried down through the skin and subcutaneous tissue. The area of the seroma cavity from previous panniculectomy was then identified and incised and this allowed entrance into the area where the bowel was located, quite a bit of serous fluid was present. This contained some incarcerated small bowel, which was noted to be above some adhesions and reduced back into the peritoneal cavity. The hernia sac was then excised. Underlying the abdominal wall, there was an elongated peritoneal nodular lesion. This came out in two pieces with total length of around 12 cm and was sent for histologic evaluation. At this point, with hernia being reduced, Ventrio ST hernia patch was selected. This was 13.8 x 17.8 cm area of mesh. This was eventually positioned with the long axis in the transverse orientation. Roughly 5 cm intervals around its circumference, 2-0 Vicryl sutures were placed on the polypropylene side of the mesh, and the mesh was soaked in antibiotic- containing saline solution. Small stab wounds were then placed where the sutures will be pulled up through the fascia or in some cases through the fascia and the skin and the left side of the sutures were then pulled up fixing the mesh roughly senior living across the abdomen. Underlying this to limit recurrent adhesion formation, Interceed mesh was placed underneath the mesh and from there down toward the pelvis, again to limit recurrent adhesion formation. The remaining sutures were then pulled up on the right side, thus fixing the mesh entirely in place with a large margin of normal fascia away from the hernia defect. The area was irrigated once again with antibiotic-containing saline solution. The midline fascia was then approximated with #2 Vicryl stitch, subcutaneous tissue with two layers of 3- 0 and 4-0 Vicryl stitch, and the skin with dhara. Prior to closure, bilateral transversus abdominis plane blocks were placed. Incision was also anesthetized with 0.5% Marcaine mixed with lidocaine, and the patient taken to the recovery room in satisfactory condition. There were no evident complications. Juan Zuniga MD /[id number]
== END 2020-05-20 13:05 | disposition home or self-care (01) | DRG 354 ==
LOC: JP.ICU 12:30 → UNDOADMIN 12:47 → JP.MS 16:10
PROVIDERS: ADMIT Surgery; ATTEND Physician Assistant Medical
PROC: 0WUF0JZ Supplement Abdominal Wall with Synthetic Substitute, Open Approach (ICD-10-PCS; principal; 2020-05-16)
PROC: 0DBW0ZZ Excision of Peritoneum, Open Approach (ICD-10-PCS; 2020-05-16)
PROC: 3E0M05Z Introduction of Adhesion Barrier into Peritoneal Cavity, Open Approach (ICD-10-PCS; 2020-05-16)
DX: K43.0 Incisional hernia with obstruction, without gangrene (principal); K91.2 Postsurgical malabsorption, not elsewhere classified; R18.8 Other ascites; E86.0 Dehydration; E55.9 Vitamin D deficiency, unspecified; E53.8 Deficiency of other specified B group vitamins; E03.9 Hypothyroidism, unspecified; Z20.828 Contact with and (suspected) exposure to other viral communicable diseases; G47.33 Obstructive sleep apnea (adult) (pediatric); F90.9 Attention-deficit hyperactivity disorder, unspecified type; I10 Essential (primary) hypertension; F32.9 Major depressive disorder, single episode, unspecified; Z79.899 Other long term (current) drug therapy; Z90.710 Acquired absence of both cervix and uterus; Z90.49 Acquired absence of other specified parts of digestive tract; Z98.890 Other specified postprocedural states; Z88.2 Allergy status to sulfonamides; Z88.1 Allergy status to other antibiotic agents; Z98.84 Bariatric surgery status
CPT/HCPCS: 36415; 74177; 80053; 83735; 84100; 85025; 88305; 94762; A9270-GY; C1713; C1781; C9113; J0171; J0330; J0690; J1100; J1170; J2020; J2185; J2405; J2704; J2710; J2765; J2795; J3010; J3410; J3490; J7050; J7121; Q9967; U0002

== ENCOUNTER 2021-01-06 09:31 | Inpatient (IN) | payer MEDICAID ==
[~2021-01-06 09:31] MED LIST changes: +Acetaminophen 500 MG Tab PO ONE; +Dexamethasone 4 MG/ML SDV ONE; +Dextrose 5%-Lactated Ringers 1,000 ML IV SCH; +Glycopyrrolate 0.2 MG/ML 5 ML MDV ONE; +Neostigmine Methylsulfate 1 MG/ML 5 ML Syringe ONE; +Ondansetron 4 MG/2 ML SDV ONE; +Propofol 200 MG/20 ML SDV ONE; +Rocuronium 50 MG/5 ML Vial ONE; +Scopolamine 1.5 MG Transdermal Patch TRDERM ONE; +Succinylcholine 200 MG/10 ML MDV ONE; +fentaNYL 250 MCG/5 ML SDV ONE
[2021-01-06] MEDS ORDERED: cefOXitin 2 GM in Sodium Chloride 0.9% 50 ML IV ONE (10:30)
[2021-01-06] MEDS ORDERED: Lactated Ringers 0 ML ONE (10:42)
[2021-01-06] MEDS ORDERED: Magnesium Sulfate 1.7 GM in Sodium Chloride 0.9% 100 ML IV SCH (10:45)
[2021-01-06] MEDS ORDERED: Ketamine 500 MG/5 ML MDV IV SCH (10:45)
[2021-01-06] MEDS ORDERED: Ketamine 50 MG in Sodium Chloride 0.9% 49.5 ML IV SCH (10:45)
[2021-01-06] MEDS ORDERED: MAGNESIUM SULFATE IV ONE (11:15)
[2021-01-06] MEDS ORDERED: SODIUM CHLORIDE 0.9% IV ONE (11:15)
[2021-01-06] MEDS ORDERED: Sodium Chloride 0.9% 1,000 ML ONE (11:39)
[2021-01-06] MEDS ORDERED: Atropine 0.4 MG/ML SDV ONE (11:47)
[2021-01-06] MEDS ORDERED: fentaNYL 250 MCG/5 ML SDV ONE (12:20)
[2021-01-06] MEDS ORDERED: Ondansetron 4 MG/2 ML SDV IVPUSH PRN (13:19)
[2021-01-06] MEDS ORDERED: diphenhydrAMINE 50 MG/ML SDV IVPUSH PRN ×2 (13:19→16:00)
[2021-01-06] MEDS ORDERED: Naloxone 0.4 MG/ML SDV IVPUSH PRN (13:19)
[2021-01-06] MEDS ORDERED: diphenhydrAMINE 25 MG Cap PO PRN (13:19)
[2021-01-06] MEDS: HYDROmorphone/Normal Saline 15 MG/30 ML PCA IV PRN (13:32)
[2021-01-06] MEDS ORDERED: Naloxone 0.4 MG/ML SDV IV PRN (14:00)
[2021-01-06] MEDS: Ondansetron 4 MG/2 ML SDV IVPUSH PRN (15:39)
[2021-01-06] MEDS ORDERED: Calcium Gluconate 10% 1 GM/10 ML SDV IVPUSH PRN (16:00)
[2021-01-06] MEDS ORDERED: Albuterol/Ipratropium 3.0-0.5 MG/3 ML Neb Soln INH PRN (16:00)
[2021-01-06] MEDS ORDERED: MVI, Adult with Vitamin K 10 ML, Thiamine 200 MG, Zinc/Copper/Manganese/Selenium 1 ML i... IV SCH ×4 (16:00)
[2021-01-06] MEDS ORDERED: Metoclopramide 10 MG/2 ML SDV IVPUSH PRN (16:00)
[2021-01-06] MEDS ORDERED: Acetaminophen 500 MG Tab PO PRN (16:00)
[2021-01-06] MEDS ORDERED: Labetalol 20 MG/4 ML Syringe IVPUSH PRN (16:00)
[2021-01-06] MEDS: Pantoprazole 40 MG Vial IVPUSH SCH (16:56)
[2021-01-06] MEDS: Acetaminophen 500 MG Tab PO SCH (16:56)
[2021-01-06] MEDS: cefOXitin 2 GM in Sodium Chloride 0.9% 50 ML IV SCH ×2 (16:57→23:18)
[2021-01-06] MEDS: Heparin Sodium 5,000 Units/ML Vial SUBCUT SCH (20:31)
[2021-01-06] MEDS: Cyclobenzaprine 10 MG Tab PO PRN (21:44)
[2021-01-06] MEDS: Dextrose 5%-Lactated Ringers 1,000 ML IV SCH (23:15)
[2021-01-07] MEDS: Acetaminophen 500 MG Tab PO SCH ×4 (01:59→23:40)
[2021-01-07] MEDS: Cyclobenzaprine 10 MG Tab PO PRN ×3 (03:29→22:10)
[2021-01-07] MEDS ORDERED: Iopamidol 612 MG/ML 50 ML SDV PO ONE (04:00)
[2021-01-07] MEDS: Dextrose 5%-Lactated Ringers 1,000 ML IV SCH (05:32)
[2021-01-07] MEDS: cefOXitin 2 GM in Sodium Chloride 0.9% 50 ML IV SCH ×3 (05:32→17:19)
[2021-01-07] MEDS: HYDROmorphone/Normal Saline 15 MG/30 ML PCA IV PRN (09:07)
[2021-01-07] MEDS: Heparin Sodium 5,000 Units/ML Vial SUBCUT SCH ×2 (09:10→22:10)
[2021-01-07] MEDS: Furosemide 20 MG Tab PO SCH (09:12)
[2021-01-07] MEDS: SCOPOLAMINE PATCH CHECK TOP SCH (09:12)
[2021-01-07] MEDS: hydrOXYzine HCL 100 MG/2 ML SDV IM PRN ×2 (09:16→17:29)
[2021-01-07] MEDS: Ondansetron 4 MG/2 ML SDV IVPUSH PRN (09:22)
[2021-01-07] MEDS: Levothyroxine 100 MCG Tab PO SCH (09:22)
[2021-01-07] MEDS: Bisacodyl 5 MG Tab PO SCH ×2 (09:22→22:10)
[2021-01-07] MEDS: Potassium Phos in 0.9 % NaCl 15 MMOL in Premix Bag 1 BAG IV SCH ×4 (09:26→13:29)
[2021-01-07] MEDS ORDERED: MVI, Adult with Vitamin K 10 ML, Thiamine 200 MG, Zinc/Copper/Manganese/Selenium 1 ML i... IV SCH ×4 (16:00)
[2021-01-07] MEDS: Pantoprazole 40 MG Vial IVPUSH SCH (17:20)
[2021-01-08] MEDS: Dextrose 5%-Lactated Ringers 1,000 ML IV SCH ×3 (03:50→23:12)
[2021-01-08] MEDS: Cyclobenzaprine 10 MG Tab PO PRN ×2 (07:08→23:07)
[2021-01-08] MEDS: Acetaminophen 500 MG Tab PO SCH ×3 (08:51→23:07)
[2021-01-08] MEDS: Bisacodyl 5 MG Tab PO SCH ×2 (08:52→20:25)
[2021-01-08] MEDS: Heparin Sodium 5,000 Units/ML Vial SUBCUT SCH ×2 (08:52→19:43)
[2021-01-08] MEDS: Furosemide 20 MG Tab PO SCH (08:52)
[2021-01-08] MEDS: SCOPOLAMINE PATCH CHECK TOP SCH (08:52)
[2021-01-08] MEDS: Levothyroxine 100 MCG Tab PO SCH (08:52)
[2021-01-08] MEDS: Magnesium Sulfate/Water 2 GM/50 ML BAG IV SCH ×4 (08:53→23:08)
[2021-01-08] MEDS: Pantoprazole 40 MG Tab.CR PO SCH (08:53)
[2021-01-08] MEDS ORDERED: Cyanocobalamin (Vitamin B12) 1,000 MCG/ML SDV IM ONE (09:00)
[2021-01-08] MEDS: hydrOXYzine HCl 25 MG Tab PO PRN ×2 (12:15→17:50)
[2021-01-08] MEDS: oxyCODONE 5 MG Tab PO PRN ×3 (12:16→20:25)
[2021-01-08] MEDS: Ondansetron 4 MG/2 ML SDV IVPUSH PRN (12:20)
[2021-01-09] MEDS: oxyCODONE 5 MG Tab PO PRN ×3 (01:07→09:44)
[2021-01-09] MEDS: hydrOXYzine HCl 25 MG Tab PO PRN (01:07)
[2021-01-09] MEDS: Magnesium Sulfate/Water 2 GM/50 ML BAG IV SCH (05:39)
[2021-01-09] MEDS: Cyclobenzaprine 10 MG Tab PO PRN (07:25)
[2021-01-09] MEDS: Levothyroxine 100 MCG Tab PO SCH (07:26)
[2021-01-09] MEDS: Pantoprazole 40 MG Tab.CR PO SCH (07:26)
[2021-01-09] MEDS: Acetaminophen 500 MG Tab PO SCH (08:38)
[2021-01-09] MEDS: Heparin Sodium 5,000 Units/ML Vial SUBCUT SCH (08:38)
[2021-01-09] MEDS: Furosemide 20 MG Tab PO SCH (08:39)
[2021-01-09] MEDS: Bisacodyl 5 MG Tab PO SCH (08:39)
--- NOTE | 2021-01-10 09:21 | CR ---
UGI Limited HISTORY: Postbariatric surgery, revision FINDINGS: Patient swallowed water-soluble contrast. Upright views of the abdomen show no evidence of extravasation or obstruction. IMPRESSION: Status post bariatric surgery revision No extravasation or obstruction seen
--- NOTE | 2021-01-10 12:48 | PN ---
DATE OF SERVICE: 01/08/2021 The patient has been afebrile with stable vital signs. Still has a fair bit of incisional pain full liquid diet. She is to then begin some bowel stimulation. She may be ready for switching over to oral pain medication tomorrow. Juan Zuniga MD /[id number]
--- NOTE | 2021-01-10 13:10 | PN ---
DATE OF SERVICE: 01/07/2021 The patient has been afebrile with stable vital signs. No major problems have been noted overnight. Urine output has been satisfactory. We will keep her on just sips of clear liquid today and CANARY RAISER. Otherwise, maximize activity. Mata catheter will be coming out her phosphate is in the lower limit of normal. We will give some K-phos IV and probably begin advancing her diet tomorrow. Juan Zuniga MD /[id number]
--- NOTE | 2021-01-10 14:01 | DISCH ---
FINAL DIAGNOSES: 1. Partial small bowel obstruction secondary to: a. 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 b. Small bowel volvulus. 2. Peritoneal nodules involving mesentery of small bowel and surface of small bowel. 3. Extensive intraabdominal adhesions. 4. Recurrent incarcerated incisional hernia. 5. Bariatric surgery status. 6. History of obstructive sleep apnea. 7. History of hepatomegaly. OPERATIVE PROCEDURES: Done on 01/06, exploratory laparotomy with: 1. Small bowel resection. 2. Secondary enteroenterostomy to restore Alexi-en-Y small bowel anatomy. 3. Excision of peritoneal nodule over the surface of the small bowel mesentery. 4. Excision of peritoneal nodule overlying the surface of the small bowel. 5. Repair of incarcerated incisional hernia. 6. Placement of Interceed mesh to limit recurrent adhesion formation between pelvic and abdominal wall and underlying viscera. SUMMARY: This is a 60-year-old female presenting with a picture of partial small bowel obstruction along with new onset of a recurrent hernia superior to the previously placed mesh. On the day of admission, the patient underwent the above operative procedures. Postoperatively, at this point, she is moving her bowels well and tolerating a liquid diet and will be advanced up to step-3 diet. She will be sent home on her usual medications plus oxycodone 5 mg q.4 hours p.r.n. pain, #30, and she will be following up with Amrita Delgado at [facility] on 01/17/2021. /[id number]
--- NOTE | 2021-01-11 14:25 | PCM.EKG ---
#1 Interpretation EKG Date: 01/06/21 Time: 09:52 Rhythm: NSR Rate (Beats/Min): 48 [place]: LAD-Left [place] Deviation P-Wave: Present QRS: Normal ST-T: Normal QT: Normal Comparison: NA - No Prior EKG
--- NOTE | 2021-01-15 13:18 | OR ---
DATE OF PROCEDURE: 01/06/2021 SURGEON: Juan Zuniga MD PREOPERATIVE DIAGNOSES: Partial small-bowel obstruction. POSTOPERATIVE DIAGNOSES: 1. Partial small-bowel obstruction secondary to: a. Stricture at the jejunojejunostomy. b. Small-bowel volvulus. 2. Peritoneal nodules involving the mesentery of the small bowel and a separate peritoneal nodule involving the surface of the small bowel. 3. Extensive intraabdominal adhesions. 4. Recurrent incarcerated incisional hernia. OPERATIVE PROCEDURES: Exploratory laparotomy with lysis of extensive adhesions and: 1. Small-bowel resection (20517). 2. Secondary enteroenterostomy to restore Alexi-en-Y small-bowel anatomy (12586). 3. Excision of a peritoneal nodule involving the mesentery of the small bowel (77650). 4. Excision of a peritoneal nodule involving the surface of the small bowel (06189). 5. Repair of an incarcerated incisional hernia (60924). 6. Placement of Interceed mesh to limit recurrent adhesion formation between the pelvic and abdominal wall. ANESTHESIA: General. GRADE TAMPER: Amrita Delgado PA-C INDICATIONS FOR PROCEDURE: This is a 60-year-old presenting with some recurrent symptoms of small-bowel obstruction. The plan is to proceed with exploratory laparotomy with lysis of adhesions and small-bowel resection as indicated. Potential risks, including bleeding, infection, injury to underlying viscera, problems with leaks from any GI tract closures, and recurrence of the obstruction over time, were all reviewed. The patient also has a clinically evident recurrent incisional hernia above the previously placed mesh in the epigastrium. The lower abdomen is somewhat patulous. It is unclear whether this is a hernia or rather simply a thinned-out area of the abdominal wall, and this would be examined intraoperatively. Potential risks of the procedure, including bleeding, infection, injury to underlying viscera, problems with recurrence of bowel obstruction, and problems with the hernia recurring or the pre-existing mesh becoming infected, were all reviewed, and the patient wishes to proceed. DETAILS OF PROCEDURE: The patient was taken to the operating room, and after general endotracheal anesthesia was induced, a Mata catheter was inserted and the abdomen prepped and draped. The previously used upper midline incision was then reused and carried down through the skin and subcutaneous tissue, and in the upper aspect of the incision, the hernia sac was identified. This was dissected down to the level of the fascia. This had some incarcerated component to it because some transverse colon and omentum, which was dissected free from the hernia sac, which was resected with a combination of cautery and stapled technique. Some additional adhesions were then taken down. During the course of the dissection, 2 peritoneal implants were noted, one on the Alexi limb roughly 20 cm proximal to the current anastomosis. This measured around 6 mm. Then, a second separate nodular peritoneal lesion was noted in the small bowel mesentery, which was around 2 mm. Both of these were excised and sent separately as pathologic specimens. Once the adhesions were lysed, 2 sites of bowel obstruction were identified. One was an acute narrowing of the point where the Alexi limb entered the jejunojejunostomy. The second was an area of small-bowel volvulus with a portion of the common small-bowel limb passing from a [id number] direction underneath the Alexi limb. The latter was reduced and the fascial defect then closed with a running 2-0 silk stitch. At this point, it was felt best to resect the jejunojejunostomy. The components of the anastomosis were divided with a DAVID stapler, as was the underlying mesentery, and the specimen delivered from the field. Initial GI tract continuity was then reestablished with a [id number] anastomosis between what had been the distal-most Alexi limb to the proximal-most common limb. This was a side- to-side enteroenterostomy with 60 mm internal firing of the DAVID stapler. The common opening was closed transversely with the same stapler and the angles anastomosed and reinforced with 3-0 Vicryl stitch and thus our defect with a 2-0 silk stitch. GI tract continuity was then fully restored with secondary anastomosis between the biliopancreatic limb and the small bowel roughly 20 cm distal to the first anastomosis as well as the same sequence of dhara and mesenteric closure. At this point, no further problems were noted. The area was then irrigated with antibiotic- containing saline solution, and bilateral transverse abdominis plane blocks were then placed, and the incision was then closed with #2 Vicryl stitch. This came down to and included the underlying mesh, which was up into the area just superior to the umbilicus. The latter had not been violated in terms of soft tissue coverage around it, so it was felt to be relatively low risk for infection. The hernia above this was then closed with a #2 Vicryl stitch without mesh given the intraoperative bowel resection. Prior to closure, the Interceed mesh was then placed underneath the incision and from there down towards the pelvis to limit recurrent adhesion formation, and at that point, with the fascia being closed, the subcutaneous tissue was approximated with 3-0 Vicryl stitch and the skin with dhara. A dressing was applied. The patient was taken to the recovery room in satisfactory condition. Physician cement tester assistant Amrita Delgado played an essential role in assisting in this case, helping to position the patient, retract structures as needed, as well as suturing and cutting sutures when indicated. Her presence improved patient safety and decreased operative time. Juan Zuniga MD /[id number]
== END 2021-01-09 11:00 | disposition home or self-care (01) | DRG 330 ==
LOC: JP.SDSSCHI 09:31 → JP.SDS 09:31 → UNDOADMIN 13:30 → JP.SDSSCHI 13:30 → JP.MS 13:30 → EDSTATUS 14:45
PROVIDERS: ADMIT Surgery; ATTEND Surgery
PROC: 0DT80ZZ Resection of Small Intestine, Open Approach (ICD-10-PCS; principal; 2021-01-06)
PROC: 0WUF0JZ Supplement Abdominal Wall with Synthetic Substitute, Open Approach (ICD-10-PCS; 2021-01-06)
PROC: 0DNU0ZZ Release Omentum, Open Approach (ICD-10-PCS; 2021-01-06)
PROC: 0D1A0ZA Bypass Jejunum to Jejunum, Open Approach (ICD-10-PCS; 2021-01-06)
PROC: 0DBW0ZZ Excision of Peritoneum, Open Approach (ICD-10-PCS; 2021-01-06)
PROC: 0DNW0ZZ Release Peritoneum, Open Approach (ICD-10-PCS; 2021-01-06)
DX: K91.31 Postprocedural partial intestinal obstruction (principal); K43.0 Incisional hernia with obstruction, without gangrene; Y83.8 Other surgical procedures as the cause of abnormal reaction of the patient, or of later complication, without mention of misadventure at the time of the procedure; Y92.89 Other specified places as the place of occurrence of the external cause; Z98.84 Bariatric surgery status; I10 Essential (primary) hypertension; G47.33 Obstructive sleep apnea (adult) (pediatric); Z90.710 Acquired absence of both cervix and uterus; Z98.51 Tubal ligation status; Z90.89 Acquired absence of other organs; K59.09 Other constipation; E66.01 Morbid (severe) obesity due to excess calories; Z68.20 Body mass index [BMI] 20.0-20.9, adult; K66.0 Peritoneal adhesions (postprocedural) (postinfection)
CPT/HCPCS: 36415; 74240; 74240-26; 80048; 80053; 83735; 83880; 84100; 85025; 85027; 88302; 88305; 88307; 88313; 88341; 88342; 93005; 94762; A9270-GY; C9113; J0171; J0330; J0461; J0694; J1100; J1170; J1644; J2020; J2185; J2405; J2704; J2710; J2795; J3010; J3410; J3411; J3420; J3475; J3490; J7030; J7050; J7120; J7121; Q9967

== ENCOUNTER 2021-09-18 10:56 | Inpatient (IN) | payer MEDICAID ==
[2021-09-18] MEDS ORDERED: Acetaminophen 325 MG Tab PO PRN (11:30)
[2021-09-18] MEDS ORDERED: Acetaminophen 650 MG Supp RECTAL PRN (11:31)
[2021-09-18] MEDS ORDERED: Metoclopramide 10 MG/2 ML SDV IV PRN (11:34)
[2021-09-18] MEDS: HYDROmorphone 0.5 MG/0.5 ML Syringe IVPUSH PRN ×2 (11:59→15:59)
[2021-09-18] MEDS: Dextrose 5%-Lactated Ringers 1,000 ML IV SCH ×2 (11:59→20:58)
[2021-09-18 12:35] LABS: CORONAVIRUS COVID-19 NAA NEGATIVE (NEGATIVE)
[2021-09-18] MEDS ORDERED: Iopamidol 612 MG/ML 100 ML Bottle IV PRN (12:45)
[2021-09-18] MEDS ORDERED: Sodium Chloride 0.9% 100 ML IV SCH (12:45)
[2021-09-18] MEDS: Pantoprazole 40 MG Vial IV SCH (13:19)
[2021-09-18] MEDS: Potassium Phos in 0.9 % NaCl 15 MMOL in Premix Bag 1 BAG IV SCH ×4 (14:45→17:59)
[2021-09-18] MEDS: Ondansetron 4 MG/2 ML SDV IVPUSH PRN (15:59)
[2021-09-18] MEDS: HYDROmorphone 1 MG/ML Syringe IV PRN ×2 (19:22→22:59)
[2021-09-19] MEDS: HYDROmorphone 1 MG/ML Syringe IV PRN ×2 (02:54→05:24)
[2021-09-19] MEDS: Dextrose 5%-Lactated Ringers 1,000 ML IV SCH (03:03)
[2021-09-19] MEDS ORDERED: Dextrose 5%-Lactated Ringers 1,000 ML IV SCH (06:58)
[2021-09-19] MEDS ORDERED: Ondansetron 4 MG/2 ML SDV IVPUSH PRN (07:01)
[2021-09-19] MEDS ORDERED: Naloxone 0.4 MG/ML SDV IVPUSH PRN (07:01)
[2021-09-19] MEDS ORDERED: diphenhydrAMINE 50 MG/ML SDV IVPUSH PRN (07:01)
[2021-09-19] MEDS ORDERED: diphenhydrAMINE 25 MG Cap PO PRN (07:01)
[2021-09-19] MEDS: HYDROmorphone/Normal Saline 6 MG/30 ML PCA Vial IV PRN (08:00)
[2021-09-19] MEDS: Magnesium Sulfate/Water 2 GM in Premix Bag 1 BAG IV SCH ×3 (09:33→22:23)
[2021-09-19] MEDS: Levothyroxine 100 MCG Tab PO SCH (09:33)
[2021-09-19] MEDS: Potassium Phos in 0.9 % NaCl 15 MMOL in Premix Bag 1 BAG IV SCH ×8 (11:38→18:40)
[2021-09-19] MEDS: Albumin Human 25 GM in Premix Bag 1 BAG IV SCH ×2 (11:48→15:54)
[2021-09-19] MEDS ORDERED: Polyethylene Glycol 3350 Powder 17 GM Packet PO ONE (12:00)
[2021-09-19] MEDS: Ondansetron 4 MG/2 ML SDV IVPUSH PRN (12:03)
[2021-09-19] MEDS: Pantoprazole 40 MG Vial IV SCH (14:20)
[2021-09-19] MEDS: MVI, Adult with Vitamin K 10 ML, Thiamine 200 MG, Zinc/Copper/Manganese/Selenium 1 ML i... IV SCH ×4 (20:33)
[2021-09-20] MEDS: Magnesium Sulfate/Water 2 GM in Premix Bag 1 BAG IV SCH ×4 (04:07→22:41)
[2021-09-20] MEDS: HYDROmorphone/Normal Saline 6 MG/30 ML PCA Vial IV PRN (05:39)
[2021-09-20] MEDS: Levothyroxine 100 MCG Tab PO SCH (07:57)
[2021-09-20] MEDS: Pantoprazole 40 MG Vial IV SCH (13:10)
[2021-09-20] MEDS: Ondansetron 4 MG/2 ML SDV IVPUSH PRN (13:10)
[2021-09-20] MEDS: MVI, Adult with Vitamin K 10 ML, Thiamine 200 MG, Zinc/Copper/Manganese/Selenium 1 ML i... IV SCH ×4 (20:35)
[2021-09-21] MEDS: Magnesium Sulfate/Water 2 GM in Premix Bag 1 BAG IV SCH ×4 (03:20→20:04)
[2021-09-21] MEDS ORDERED: fentaNYL 250 MCG/5 ML SDV ONE (07:11)
[2021-09-21] MEDS ORDERED: Succinylcholine 200 MG/10 ML MDV ONE (07:12)
[2021-09-21] MEDS ORDERED: Glycopyrrolate 0.2 MG/ML 5 ML MDV ONE (07:12)
[2021-09-21] MEDS ORDERED: Neostigmine Methylsulfate 1 MG/ML 5 ML Syringe ONE (07:12)
[2021-09-21] MEDS ORDERED: Propofol 200 MG/20 ML SDV ONE (07:12)
[2021-09-21] MEDS ORDERED: Ondansetron 4 MG/2 ML SDV ONE (07:12)
[2021-09-21] MEDS ORDERED: Rocuronium 50 MG/5 ML Vial ONE (07:12)
[2021-09-21] MEDS ORDERED: Dexamethasone 4 MG/ML SDV ONE (07:12)
[2021-09-21] MEDS ORDERED: Ketamine 500 MG/5 ML MDV IV SCH ×3 (07:30→09:45)
[2021-09-21] MEDS ORDERED: Bupivacaine 0.5% 50 ML MDV ONE (07:38)
[2021-09-21] MEDS: Levothyroxine 100 MCG Tab PO SCH (07:56)
[2021-09-21] MEDS ORDERED: Acetaminophen 500 MG Tab PO ONE (08:00)
[2021-09-21] MEDS: Lidocaine 1% with EPINEPHrine 1:100,000 50 ML MDV ONE ×3 (08:46→10:50)
[2021-09-21] MEDS: Bupivacaine 0.5% 50 ML MDV ONE ×3 (08:46→10:50)
[2021-09-21] MEDS: Meropenem 500 MG SDV ONE ×2 (08:47→09:50)
[2021-09-21] MEDS ORDERED: cefOXitin 2 GM in Sodium Chloride 0.9% 50 ML IV ONE (09:30)
[2021-09-21] MEDS ORDERED: Ropivacaine 28 ML, dexAMETHasone 8 MG, EPINEPHrine 0.4 MG, Sodium Chloride 0.9% 49.6 ML NERVRT SCH ×4 (09:45)
[2021-09-21] MEDS ORDERED: Ketamine 17 MG in Sodium Chloride 0.9% 19.83 ML IV SCH (09:45)
[2021-09-21] MEDS ORDERED: Naloxone 0.4 MG/ML SDV IV PRN (11:00)
[2021-09-21] MEDS ORDERED: fentaNYL 100 MCG/2 ML SDV IVPUSH ONE (11:21)
[2021-09-21] MEDS ORDERED: hydrOXYzine HCL 100 MG/2 ML SDV IM ONE (11:21)
[2021-09-21] MEDS ORDERED: Cyclobenzaprine 10 MG Tab PO PRN (12:51)
[2021-09-21] MEDS ORDERED: Albuterol/Ipratropium 3.0-0.5 MG/3 ML Neb Soln INH PRN (12:57)
[2021-09-21] MEDS ORDERED: diphenhydrAMINE 50 MG/ML SDV IVPUSH PRN (13:00)
[2021-09-21] MEDS ORDERED: hydrOXYzine HCL 100 MG/2 ML SDV IM PRN (13:00)
[2021-09-21] MEDS ORDERED: Labetalol 20 MG/4 ML Syringe IVPUSH PRN (13:00)
[2021-09-21] MEDS: Pantoprazole 40 MG Vial IVPUSH SCH (13:46)
[2021-09-21] MEDS: Dextrose 5%-Lactated Ringers 1,000 ML IV SCH (13:47)
[2021-09-21] MEDS: HYDROmorphone/Normal Saline 6 MG/30 ML PCA Vial IV PRN ×2 (14:29→21:04)
[2021-09-21] MEDS ORDERED: MVI, Adult with Vitamin K 10 ML, Thiamine 200 MG, Zinc/Copper/Manganese/Selenium 1 ML i... IV ONE ×4 (16:00)
[2021-09-21] MEDS: cefOXitin 2 GM in Sodium Chloride 0.9% 50 ML IV SCH ×2 (16:35→21:06)
[2021-09-21] MEDS: Heparin Sodium 5,000 Units/ML Vial SUBCUT SCH (20:05)
[2021-09-22] MEDS: Dextrose 5%-Lactated Ringers 1,000 ML IV SCH ×2 (00:23→07:33)
[2021-09-22] MEDS: Acetaminophen 500 MG Tab PO SCH ×4 (00:23→22:24)
[2021-09-22] MEDS: Magnesium Sulfate/Water 2 GM in Premix Bag 1 BAG IV SCH (02:20)
[2021-09-22] MEDS: HYDROmorphone/Normal Saline 6 MG/30 ML PCA Vial IV PRN ×4 (02:36→21:58)
[2021-09-22] MEDS ORDERED: Iopamidol 612 MG/ML 50 ML SDV PO ONE (04:08)
[2021-09-22] MEDS: cefOXitin 2 GM in Sodium Chloride 0.9% 50 ML IV SCH ×4 (04:29→20:36)
[2021-09-22] MEDS: Ondansetron 4 MG/2 ML SDV IVPUSH PRN ×2 (07:31→15:14)
[2021-09-22] MEDS: Levothyroxine 100 MCG Tab PO SCH (07:46)
[2021-09-22] MEDS: Heparin Sodium 5,000 Units/ML Vial SUBCUT SCH ×2 (09:49→20:36)
[2021-09-22] MEDS: SCOPOLAMINE PATCH CHECK TOP SCH (09:52)
[2021-09-22] MEDS: Metoclopramide 10 MG/2 ML SDV IVPUSH PRN (10:07)
[2021-09-22] MEDS ORDERED: Loperamide 2 MG Cap PO PRN (10:09)
[2021-09-22] MEDS ORDERED: Bisacodyl 5 MG Tab PO PRN (10:46)
[2021-09-22] MEDS: Pantoprazole 40 MG Vial IVPUSH SCH (14:00)
[2021-09-22] MEDS ORDERED: MVI, Adult with Vitamin K 10 ML, Thiamine 200 MG, Zinc/Copper/Manganese/Selenium 1 ML i... IV SCH ×4 (16:00)
[2021-09-22] MEDS: Docusate Sodium 100 MG Cap PO SCH (20:36)
[2021-09-23] MEDS: Dextrose 5%-Lactated Ringers 1,000 ML IV SCH (01:55)
[2021-09-23] MEDS: HYDROmorphone/Normal Saline 6 MG/30 ML PCA Vial IV PRN ×2 (05:14→12:57)
[2021-09-23] MEDS: Acetaminophen 500 MG Tab PO SCH ×3 (05:17→22:48)
[2021-09-23] MEDS: Ondansetron 4 MG/2 ML SDV IVPUSH PRN (05:51)
[2021-09-23] MEDS: Levothyroxine 100 MCG Tab PO SCH (08:00)
[2021-09-23] MEDS: Pantoprazole 40 MG Tab.CR PO SCH (08:00)
[2021-09-23] MEDS ORDERED: Dextrose 5%-Lactated Ringers 1,000 ML IV SCH (08:15)
[2021-09-23] MEDS ORDERED: Cyanocobalamin (Vitamin B12) 1,000 MCG/ML SDV IM ONE (09:00)
[2021-09-23] MEDS: Magnesium Sulfate/Water 2 GM in Premix Bag 1 BAG IV SCH ×3 (09:31→20:33)
[2021-09-23] MEDS: Polyethylene Glycol 3350 Powder 17 GM Packet PO SCH ×2 (09:33→20:34)
[2021-09-23] MEDS: Heparin Sodium 5,000 Units/ML Vial SUBCUT SCH ×2 (09:34→20:36)
[2021-09-23] MEDS: Docusate Sodium 100 MG Cap PO SCH ×2 (09:34→20:36)
[2021-09-23] MEDS: SCOPOLAMINE PATCH CHECK TOP SCH (09:35)
[2021-09-23] MEDS: Lidocaine 2% 60 ML, Alum Hydrox/Mag Hydrox/Simeth 360 ML PO PRN ×2 (09:43)
[2021-09-23] MEDS: Cyclobenzaprine 10 MG Tab PO PRN ×2 (13:15→22:48)
[2021-09-24] MEDS: HYDROmorphone/Normal Saline 6 MG/30 ML PCA Vial IV PRN ×2 (03:07→17:33)
[2021-09-24] MEDS: Magnesium Sulfate/Water 2 GM in Premix Bag 1 BAG IV SCH ×4 (03:09→20:52)
[2021-09-24] MEDS: Acetaminophen 500 MG Tab PO SCH ×3 (06:11→21:01)
[2021-09-24] MEDS: Pantoprazole 40 MG Tab.CR PO SCH (09:01)
[2021-09-24] MEDS: Levothyroxine 100 MCG Tab PO SCH (09:01)
[2021-09-24] MEDS: Heparin Sodium 5,000 Units/ML Vial SUBCUT SCH ×2 (09:02→20:52)
[2021-09-24] MEDS: Docusate Sodium 100 MG Cap PO SCH ×2 (09:02→20:53)
[2021-09-24] MEDS: Metoclopramide 10 MG/2 ML SDV IVPUSH PRN (09:03)
[2021-09-24] MEDS: Lidocaine 2% 60 ML, Alum Hydrox/Mag Hydrox/Simeth 360 ML PO PRN ×8 (09:05→21:04)
[2021-09-24] MEDS: Polyethylene Glycol 3350 Powder 17 GM Packet PO SCH ×2 (10:53→20:52)
[2021-09-24] MEDS: Ondansetron 4 MG/2 ML SDV IVPUSH PRN (14:17)
[2021-09-24] MEDS: Cyclobenzaprine 10 MG Tab PO PRN (23:16)
[2021-09-25] MEDS: Magnesium Sulfate/Water 2 GM in Premix Bag 1 BAG IV SCH ×4 (03:57→21:23)
[2021-09-25] MEDS: Acetaminophen 500 MG Tab PO SCH ×3 (05:13→23:52)
[2021-09-25] MEDS: Levothyroxine 100 MCG Tab PO SCH (07:51)
[2021-09-25] MEDS: Pantoprazole 40 MG Tab.CR PO SCH (07:51)
[2021-09-25] MEDS ORDERED: Iopamidol 612 MG/ML 100 ML Bottle IV SCH (09:45)
[2021-09-25] MEDS: HYDROmorphone/Normal Saline 6 MG/30 ML PCA Vial IV PRN (09:48)
[2021-09-25] MEDS: Docusate Sodium 100 MG Cap PO SCH ×2 (09:52→21:22)
[2021-09-25] MEDS: Polyethylene Glycol 3350 Powder 17 GM Packet PO SCH ×2 (09:52→21:22)
[2021-09-25] MEDS: Heparin Sodium 5,000 Units/ML Vial SUBCUT SCH ×2 (09:52→21:22)
[2021-09-25] MEDS: Lidocaine 2% 60 ML, Alum Hydrox/Mag Hydrox/Simeth 360 ML PO PRN ×4 (12:48→17:22)
[2021-09-25] MEDS: Cyclobenzaprine 10 MG Tab PO PRN ×2 (13:20→21:21)
[2021-09-26] MEDS: HYDROmorphone/Normal Saline 6 MG/30 ML PCA Vial IV PRN (03:12)
[2021-09-26] MEDS: Magnesium Sulfate/Water 2 GM in Premix Bag 1 BAG IV SCH ×3 (05:39→15:49)
[2021-09-26] MEDS: Acetaminophen 500 MG Tab PO SCH ×3 (05:39→22:58)
[2021-09-26] MEDS: Levothyroxine 100 MCG Tab PO SCH (07:09)
[2021-09-26] MEDS: Pantoprazole 40 MG Tab.CR PO SCH (07:09)
[2021-09-26] MEDS: Lidocaine 2% 60 ML, Alum Hydrox/Mag Hydrox/Simeth 360 ML PO PRN ×4 (07:10→19:24)
[2021-09-26] MEDS: oxyCODONE 5 MG Tab PO PRN ×3 (07:13→19:21)
[2021-09-26] MEDS: Heparin Sodium 5,000 Units/ML Vial SUBCUT SCH ×2 (09:10→21:23)
[2021-09-26] MEDS: Ondansetron 4 MG/2 ML SDV IVPUSH PRN ×2 (11:23→17:33)
[2021-09-26] MEDS: Cyclobenzaprine 10 MG Tab PO PRN ×2 (12:48→21:28)
[2021-09-26] MEDS: Acetaminophen 500 MG Tab PO PRN (19:20)
[2021-09-26] MEDS ORDERED: Ondansetron 4 MG Tab.DIS PO PRN (20:37)
[2021-09-27] MEDS: oxyCODONE 5 MG Tab PO PRN (01:30)
[2021-09-27] MEDS: Acetaminophen 500 MG Tab PO SCH (06:02)
[2021-09-27] MEDS: Lidocaine 2% 60 ML, Alum Hydrox/Mag Hydrox/Simeth 360 ML PO PRN ×2 (08:11)
[2021-09-27] MEDS: Pantoprazole 40 MG Tab.CR PO SCH (08:13)
[2021-09-27] MEDS: Levothyroxine 100 MCG Tab PO SCH (08:13)
[2021-09-27] MEDS: Acetaminophen 500 MG Tab PO PRN (08:13)
== END 2021-09-27 09:10 | disposition home or self-care (01) | DRG 326 ==
LOC: JP.ICU 10:56 → JP.MS 09-20 16:12
PROVIDERS: ADMIT Surgery; ATTEND Surgery
PROC: 0DB80ZZ Excision of Small Intestine, Open Approach (ICD-10-PCS; principal; 2021-09-21)
PROC: 0D9600Z Drainage of Stomach with Drainage Device, Open Approach (ICD-10-PCS; 2021-09-21)
PROC: 0DQ80ZZ Repair Small Intestine, Open Approach (ICD-10-PCS; 2021-09-21)
PROC: 0WQF0ZZ Repair Abdominal Wall, Open Approach (ICD-10-PCS; 2021-09-21)
PROC: 0DBW0ZZ Excision of Peritoneum, Open Approach (ICD-10-PCS; 2021-09-21)
PROC: 3E0M05Z Introduction of Adhesion Barrier into Peritoneal Cavity, Open Approach (ICD-10-PCS; 2021-09-21)
DX: K95.89 Other complications of other bariatric procedure (principal); E43 Unspecified severe protein-calorie malnutrition; K90.9 Intestinal malabsorption, unspecified; K43.2 Incisional hernia without obstruction or gangrene; E03.9 Hypothyroidism, unspecified; N20.0 Calculus of kidney; E55.9 Vitamin D deficiency, unspecified; H54.7 Unspecified visual loss; I10 Essential (primary) hypertension; G47.30 Sleep apnea, unspecified; K59.09 Other constipation; K52.9 Noninfective gastroenteritis and colitis, unspecified; K21.9 Gastro-esophageal reflux disease without esophagitis; N39.3 Stress incontinence (female) (male); G89.29 Other chronic pain; M54.9 Dorsalgia, unspecified; M19.90 Unspecified osteoarthritis, unspecified site; G43.909 Migraine, unspecified, not intractable, without status migrainosus; F90.9 Attention-deficit hyperactivity disorder, unspecified type; M85.80 Other specified disorders of bone density and structure, unspecified site; E04.9 Nontoxic goiter, unspecified; E53.8 Deficiency of other specified B group vitamins; D64.9 Anemia, unspecified; Z86.19 Personal history of other infectious and parasitic diseases; Z90.89 Acquired absence of other organs; Z88.2 Allergy status to sulfonamides; Z98.84 Bariatric surgery status; Z88.1 Allergy status to other antibiotic agents; Z91.09 Other allergy status, other than to drugs and biological substances; Z79.890 Hormone replacement therapy; Z79.899 Other long term (current) drug therapy; Z86.010 Personal history of colon polyps; Z87.442 Personal history of urinary calculi; Z90.49 Acquired absence of other specified parts of digestive tract; Z90.710 Acquired absence of both cervix and uterus; Z98.51 Tubal ligation status; Z96.0 Presence of urogenital implants; Z87.891 Personal history of nicotine dependence; Y83.8 Other surgical procedures as the cause of abnormal reaction of the patient, or of later complication, without mention of misadventure at the time of the procedure; Z20.822 Contact with and (suspected) exposure to COVID-19
CPT/HCPCS: 0241U; 36415; 36430; 74177; 74177-26; 74240; 74240-26; 80053; 82306; 82525; 82607; 82728; 82746; 83735; 83880; 84100; 84425; 84443; 84590; 84630; 85025; 85027; 86850; 86900; 86901; 86920; 86922; 87046; 87177; 87209; 87493; 87899; 88302; 88305; 88307; 89055; A9270-GY; C9113; J0171; J0330; J0694; J1100; J1170; J1644; J2020; J2185; J2405; J2704; J2710; J2765; J2795; J3010; J3410; J3411; J3420; J3475; J3490; J7120; J7121; P9016; P9047; Q9967

== ENCOUNTER 2022-06-11 07:12 | Inpatient (IN) | payer MEDICAID ==
[~2022-06-11 07:12] MED LIST changes: -Acetaminophen 500 MG Tab PO ONE; -Bupivacaine 0.5% 50 ML MDV ONE; -Dexamethasone 4 MG/ML SDV ONE; -Dextrose 5%-Lactated Ringers 1,000 ML IV SCH; -Glycopyrrolate 0.2 MG/ML 5 ML MDV ONE; -Lidocaine 1% with EPINEPHrine 1:100,000 50 ML MDV ONE; -Meropenem 500 MG SDV ONE; +Midazolam 1 MG/ML 2 ML SDV ONE; -Neostigmine Methylsulfate 1 MG/ML 5 ML Syringe ONE; -Ondansetron 4 MG/2 ML SDV ONE; -Rocuronium 50 MG/5 ML Vial ONE; -Scopolamine 1.5 MG Transdermal Patch TRDERM ONE; -Succinylcholine 200 MG/10 ML MDV ONE; -fentaNYL 250 MCG/5 ML SDV ONE
[2022-06-11] MEDS ORDERED: Lactated Ringers 1,000 ML IV ONE (07:30)
[2022-06-11] MEDS ORDERED: Cyanocobalamin (Vitamin B12) 1,000 MCG/ML SDV IM ONE (07:30)
[2022-06-11] MEDS ORDERED: Glycopyrrolate 0.2 MG/ML 2 ML SDV IVPUSH ONE (08:00)
[2022-06-11 08:19] LABS: ESTIMATED GFR 99 mL/min (>60)
[2022-06-11] MEDS ORDERED: MVI, Adult with Vitamin K 10 ML, Thiamine 200 MG, Chromium/Copper/Mang/Selen/Zn 1 ML in... IV ONE ×4 (08:30)
[2022-06-11] MEDS ORDERED: Ondansetron 4 MG/2 ML SDV IVPUSH PRN (11:43)
[2022-06-11] MEDS ORDERED: Lactated Ringers 1,000 ML IV SCH ×2 (11:45→15:05)
[2022-06-11] MEDS ORDERED: Prochlorperazine 10 MG/2 ML SDV IV PRN (11:48)
[2022-06-11] MEDS ORDERED: hydrOXYzine HCl 25 MG Tab PO PRN ×2 (11:49→14:22)
[2022-06-11] MEDS ORDERED: Cyclobenzaprine 10 MG Tab PO PRN (11:50)
[2022-06-11] MEDS ORDERED: Hyoscyamine 0.125 MG Tab.SL SL PRN (11:52)
[2022-06-11] MEDS ORDERED: Lidocaine 2% 60 ML, Alum Hydrox/Mag Hydrox/Simeth 360 ML PO PRN ×2 (12:20)
[2022-06-11] MEDS: Lidocaine 2% 60 ML, Alum Hydrox/Mag Hydrox/Simeth 360 ML PO SCH ×4 (12:45→16:14)
[2022-06-11] MEDS: Escitalopram 20 MG Tab PO SCH (12:45)
[2022-06-11] MEDS: Pantoprazole 40 MG Vial IV SCH (14:17)
[2022-06-11] MEDS: 1: AA 5%/Calcium/D15W/Lytes 1,000 ML with MVI, Adult with Vitamin K 10 ML, Zinc/Copper/M IV SCH ×3 (15:04)
[2022-06-11] MEDS ORDERED: Fat Emulsion 100 ML IV ONE (16:00)
[2022-06-11] MEDS: Azithromycin 250 MG Tab PO SCH (20:14)
[2022-06-11] MEDS: Lubiprostone 24 MCG Cap PO SCH (20:14)
[2022-06-11] MEDS: traZODone 50 MG Tab PO SCH (20:14)
[2022-06-11] MEDS: Ondansetron 4 MG Tab.DIS PO PRN (20:17)
[2022-06-12] MEDS: 1: AA 5%/Calcium/D15W/Lytes 1,000 ML with MVI, Adult with Vitamin K 10 ML, Zinc/Copper/M IV SCH ×9 (01:09→20:53)
[2022-06-12 04:59] LABS: ESTIMATED GFR 103 mL/min (>60)
[2022-06-12] MEDS ORDERED: Central Total Parenteral Nutrition Bag SCH (08:00)
[2022-06-12] MEDS: Lidocaine 2% 60 ML, Alum Hydrox/Mag Hydrox/Simeth 360 ML PO SCH ×6 (08:53→17:03)
[2022-06-12] MEDS: Furosemide 20 MG Tab PO SCH (08:54)
[2022-06-12] MEDS: Azithromycin 250 MG Tab PO SCH ×2 (08:54→20:33)
[2022-06-12] MEDS: Lubiprostone 24 MCG Cap PO SCH ×2 (08:54→20:33)
[2022-06-12] MEDS: Escitalopram 20 MG Tab PO SCH (08:55)
[2022-06-12] MEDS: Levothyroxine 100 MCG Tab PO SCH (08:55)
[2022-06-12] MEDS: Polyethylene Glycol 3350 Powder 17 GM Packet PO SCH ×2 (08:57→20:33)
[2022-06-12] MEDS: Ondansetron 4 MG Tab.DIS PO PRN ×2 (09:02→17:10)
[2022-06-12] MEDS: HYDROmorphone 2 MG Tab PO PRN ×2 (11:21→19:44)
[2022-06-12] MEDS: Pantoprazole 40 MG Vial IV SCH (15:17)
[2022-06-12] MEDS ORDERED: Fat Emulsion 100 ML IV ONE (16:00)
[2022-06-12] MEDS: traZODone 50 MG Tab PO SCH (20:33)
[2022-06-13 04:41] LABS: ESTIMATED GFR 103 mL/min (>60)
[2022-06-13] MEDS: 1: AA 5%/Calcium/D15W/Lytes 1,000 ML with MVI, Adult with Vitamin K 10 ML, Zinc/Copper/M IV SCH ×6 (07:14→16:45)
[2022-06-13] MEDS: Levothyroxine 100 MCG Tab PO SCH (07:19)
[2022-06-13] MEDS: HYDROmorphone 2 MG Tab PO PRN ×3 (07:30→19:39)
[2022-06-13] MEDS ORDERED: Central Total Parenteral Nutrition Bag SCH (07:30)
[2022-06-13] MEDS: Ondansetron 4 MG Tab.DIS PO PRN ×3 (07:32→19:39)
[2022-06-13] MEDS: Lidocaine 2% 60 ML, Alum Hydrox/Mag Hydrox/Simeth 360 ML PO SCH ×6 (07:34→16:45)
[2022-06-13] MEDS: Lubiprostone 24 MCG Cap PO SCH ×2 (08:14→21:42)
[2022-06-13] MEDS: Furosemide 20 MG Tab PO SCH (08:15)
[2022-06-13] MEDS: Escitalopram 20 MG Tab PO SCH (08:16)
[2022-06-13] MEDS: Polyethylene Glycol 3350 Powder 17 GM Packet PO SCH ×2 (08:19→21:42)
[2022-06-13] MEDS: Azithromycin 250 MG Tab PO SCH ×2 (08:20→21:42)
[2022-06-13] MEDS: Potassium Phos in 0.9 % NaCl 15 MMOL in Premix Bag 1 BAG IV SCH ×4 (08:21→12:09)
[2022-06-13] MEDS ORDERED: 1: AA 5%/Calcium/D15W/Lytes 1,000 ML with MVI, Adult with Vitamin K 10 ML, Zinc/Copper/M IV SCH ×3 (10:30)
[2022-06-13] MEDS: Pantoprazole 40 MG Vial IV SCH (13:31)
[2022-06-13] MEDS: traZODone 50 MG Tab PO SCH (21:42)
[2022-06-14] MEDS: 1: AA 5%/Calcium/D15W/Lytes 1,000 ML with MVI, Adult with Vitamin K 10 ML, Zinc/Copper/M IV SCH ×3 (02:55)
[2022-06-14 05:08] LABS: ESTIMATED GFR 107 mL/min (>60)
[2022-06-14] MEDS: Levothyroxine 100 MCG Tab PO SCH (07:36)
[2022-06-14] MEDS: Lidocaine 2% 60 ML, Alum Hydrox/Mag Hydrox/Simeth 360 ML PO SCH ×4 (07:37→12:09)
[2022-06-14] MEDS: Azithromycin 250 MG Tab PO SCH (08:45)
[2022-06-14] MEDS: Furosemide 20 MG Tab PO SCH (08:46)
[2022-06-14] MEDS: Lubiprostone 24 MCG Cap PO SCH (08:46)
[2022-06-14] MEDS: Escitalopram 20 MG Tab PO SCH (08:46)
[2022-06-14] MEDS: Polyethylene Glycol 3350 Powder 17 GM Packet PO SCH (08:46)
[2022-06-14] MEDS: Ondansetron 4 MG Tab.DIS PO PRN (10:28)
[2022-06-14] MEDS: HYDROmorphone 2 MG Tab PO PRN (10:28)
== END 2022-06-14 12:14 | disposition home health service (06) | DRG 391 ==
LOC: JP.SDS 07:12 → JP.MS 07:12 → EDSTATUS 07:15 → JP.MS 09:40
PROVIDERS: ADMIT Surgery; ATTEND Surgery
PROC: 0D748ZZ Dilation of Esophagogastric Junction, Via Natural or Artificial Opening Endoscopic (ICD-10-PCS; principal; 2022-06-11)
PROC: 3E0336Z Introduction of Nutritional Substance into Peripheral Vein, Percutaneous Approach (ICD-10-PCS; 2022-06-11)
DX: K22.2 Esophageal obstruction (principal); E43 Unspecified severe protein-calorie malnutrition; Z68.1 Body mass index [BMI] 19.9 or less, adult; K21.9 Gastro-esophageal reflux disease without esophagitis; E53.8 Deficiency of other specified B group vitamins; E50.9 Vitamin A deficiency, unspecified; E55.9 Vitamin D deficiency, unspecified; F32.9 Major depressive disorder, single episode, unspecified; Z96.0 Presence of urogenital implants; Z20.822 Contact with and (suspected) exposure to COVID-19; F90.9 Attention-deficit hyperactivity disorder, unspecified type; E61.0 Copper deficiency; I10 Essential (primary) hypertension; E66.01 Morbid (severe) obesity due to excess calories; G47.33 Obstructive sleep apnea (adult) (pediatric); Z90.89 Acquired absence of other organs; Z98.890 Other specified postprocedural states; Z90.710 Acquired absence of both cervix and uterus; Z98.51 Tubal ligation status
CPT/HCPCS: 36415; 80053; 82607; 82728; 82746; 83735; 83880; 84100; 84134; 84443; 85025; 85027; 90686; A9270-GY; C1726; C9113; G0008; J1642; J2250; J2704; J3411; J3420; J3490; J7120; Q0162; U0002